=== PATIENT | female | born 1935 | race Caucasian/White ===

== ENCOUNTER 2021-04-20 07:09 | Day surgery (SDC) | payer OTHER ==
[2021-04-19 15:21] LABS: Absolute Lymphocytes (CBC) 1.9 K/uL (0.7-4.9); Basophils % 0.9 % (0-1.3); Hematocrit 38.6 % (36.0-45.0); Lymphocytes % 22.3 % (15.3-44.8); MPV 8.7 fL (7.6-11.3); RBC Red Blood Cell Count 4.26 M/uL (3.86-4.86)
--- NOTE | 2021-04-19 15:33 | RAD REPORT ---
EXAM DESCRIPTION: RAD - Chest Pa And Lat (2 Views) - 04/19/2021 3:13 pm CLINICAL HISTORY: Pre Op COMPARISON: No comparisonsChest Single View dated 09/06/2016; CHEST SINGLE VIEW dated 08/29/2012; CHEST PA AND LAT 2 VIEW dated 09/20/2011; CHEST PA AND LAT 2 VIEW dated 11/10/2008 FINDINGS: Lines: None. Lungs: No evidence of edema or pneumonia. Pleural: No significant pleural effusions or pneumothorax. Cardiac: The heart size is within normal limits. Bones: No acute fractures. Other: IMPRESSION: No acute cardiopulmonary disease.
[2021-04-19 15:40] LABS: Potassium 3.9 mmol/L (3.5-5.1)
[2021-04-20] MEDS ORDERED: Ringers Lactate 1,000 ML IV ONE (07:50)
[2021-04-20] MEDS ORDERED: CEFAZOLIN/SWI 1gm 1 GM/10 ML SYR ONE (07:50)
[2021-04-20] MEDS ORDERED: BUPIVACAINE 0.5% PF 10 ML VIAL ONE (08:18)
[2021-04-20] MEDS ORDERED: LIDOCAINE 1% MPF 5 ML VIAL ONE (08:19)
[2021-04-20] MEDS ORDERED: propofoL 200 MG/20 ML VIAL IV ONE (08:19)
[2021-04-20] MEDS ORDERED: FENTANYL CITR 100 MCG/2 ML ONE (08:19)
[2021-04-20] MEDS ORDERED: KETOROLAC 30 MG/ML INJ ONE (08:54)
--- NOTE | 2021-04-20 09:53 | OP ---
Date of Procedure: 04/20/2021 Surgeon: Sekou Healy MD Felt Hat Inspector And Packer: BRIDGETT Yepez. Preoperative Diagnosis: Left wrist mass rule out skin cancer. 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 Estimated Blood Loss: Minimal. Specimen: Left breast mass. Findings: Squamous cell carcinoma, well differentiated, margins free. Anesthesia: MAC. Complications: None. Disposition: The patient tolerated the procedure in stable condition and taken to Recovery in good g eneral condition. Procedure In Detail: The patient was brought to the OR and placed in supine position. MAC anesthesi a was begun. The patient was prepped and draped in the usual sterile fashion. Marcaine 0.5% was inf iltrated locally. A 15-blade was used to make a 5 x 2.5 cm incision. Subcutaneous tissue divided. The wrist mass was excised and then frozen section revealed it to be a well-differentiated squamous c ell carcinoma with margins being free. Wound irrigated. Bleeding controlled with cautery. Flaps cr eated and 2-0 and 3-0 chromic used to approximate subcutaneous tissue and 4-0 nylon used to close the skin. Sterile dressing applied. The patient was awakened and taken to Recovery in good general con dition. Discharge Note: The patient will go to Day Surgery and home when stable. Disposition: Home. Condition: Stable. Discharge Instructions: Resume home medications and diet. Activity as tolerated. No heavy lifting. Keep dressing clean and dry. Do not change dressing. We will change in the office. Tylenol No.3 one tablet p.o. q.4 p.r.n. pain and follow up in my office in 10 days. Call for appointment. JESSICA/ZAID Voice ID: [id number] Report ID: [id number]
[2021-04-20 10:39] VITALS: BP 171/72; TEMP 98.4; O2SAT 99
== END 2021-04-20 10:00 | disposition home or self-care (01) ==
LOC: OR 07:09
PROVIDERS: ATTEND Surgery
PROC: 0JBK0ZZ Excision of Left Hand Subcutaneous Tissue and Fascia, Open Approach (ICD-10-PCS; principal; 2021-04-20 08:15)
DX: C44.629 Squamous cell carcinoma of skin of left upper limb, including shoulder (principal); Z20.822 Contact with and (suspected) exposure to COVID-19
CPT/HCPCS: 85025; 80048; 36415; 88331; 88332; 88305; 71046; 11606; U0003; J2704; J3010; J0690; J7120

== ENCOUNTER 2021-09-04 16:25 | Observation (INO) | payer OTHER ==
[2021-09-04 16:57] LABS: Hematocrit 41.6 % (36.0-45.0); Lymphocytes % 33.3 % (15.3-44.8); MPV 8.2 fL (7.6-11.3); RBC Red Blood Cell Count 4.57 M/uL (3.86-4.86)
[2021-09-04 17:00] LABS: Protime INR 0.99
[2021-09-04] MEDS ORDERED: ONDANSETRON 4 MG/2 ML VIAL ONE (17:00)
[2021-09-04] MEDS ORDERED: NA CHLORIDE 0.9% 500 ML ONE (17:00)
[2021-09-04] MEDS ORDERED: FENTANYL CITR 100 MCG/2 ML ONE (17:00)
[2021-09-04 18:14] LABS: Albumin 3.6 g/dL (3.4-5.0); Bilirubin Direct 0.1 mg/dL (0-0.2); Bilirubin Total 0.4 mg/dL (0.2-1.0); Potassium 3.5 mmol/L (3.5-5.1); Protein, Total 7.3 g/dL (6.4-8.2); T3 Free 2.99 pg/mL (2.18-3.98); Troponin High Sensitivity 22.7 pg/mL (<58.9)
[2021-09-04 18:16] LABS: Thyroid Stimulating Hormone 4.49 uIU/mL (0.360-3.740)
--- NOTE | 2021-09-04 18:34 | RAD REPORT ---
EXAM DESCRIPTION: Nehemiah Single View09/04/2021 6:19 pm CLINICAL HISTORY: Chest pain COMPARISON: 2020 FINDINGS: The lungs appear clear of acute infiltrate. The heart is normal size IMPRESSION: No acute abnormalities displayed
--- NOTE | 2021-09-04 18:47 | ER ---
Nurse's Notes [facility] Name: Judi Harper Age: 85 yrs Sex: Female : 1935 Arrival Date: 09/04/2021 Time: 16:31 Bed 2 Private MD: Diagnosis: Chest pain, unspecified;Palpitations Presentation: 09/04 16:32 Chief complaint: EMS states: Pt called EMS for chest pain and high heart rate, hx of ph a-fib, on scene HR was 190s, SVT, attempted vagal maneuver, gave pt a 200 NS bolus, pt converted to regular rhythm, pt also reports taking an extra dose of her metoprolol when episode began. Coronavirus screen: At this time, the client does not indicate any symptoms associated with coronavirus-19. Ebola Screen: No symptoms or risks identified at this time. Initial Sepsis Screen: Does the patient meet any 2 criteria? Mean Arterial Pressure (MAP) < 65. HR > 90 bpm. Does the patient have a suspected source of infection? No. Patient's initial sepsis screen is negative. Risk Assessment: Do you want to hurt yourself or someone else? Patient reports no desire to harm self or others. Onset of symptoms was September 04, 2021. 16:32 Method Of Arrival: EMS: [facility] 16:32 Acuity: PIA 2 ph Triage Assessment: 16:30 General: Appears in no apparent distress. Behavior is calm. Pain: Denies pain. jg9 Cardiovascular: Rhythm is SVT. Historical: - Allergies: 16:36 PENICILLINS; ph - PMHx: 16:36 Atrial Fib; Hypertension; spinal stenosis; ph - Immunization history:: Client reports receiving the 2nd dose of the Covid vaccine, Pneumococcal vaccine is up to date, Flu vaccine is up to date. - Social history:: Smoking status: Patient denies any tobacco usage or history of. Screenin:30 Nutritional screening: No deficits noted. Tuberculosis screening: No symptoms or risk jg9 factors identified. Fall Risk None identified. 16:35 Abuse screen: Denies threats or abuse. Denies injuries from another. ph Assessment: 16:25 Pain: Complains of pain in chest Pain began suddenly. jg9 16:38 Reassessment: Patient appears in no apparent distress at this time. PT HR has ph increased, 180 bpm, SVT. 18:30 Pain: Denies pain. jg9 19:15 General: Appears in no apparent distress. comfortable, Behavior is calm, cooperative. al4 Pain: Denies pain. Neuro: Level of Consciousness is awake, alert, Oriented to person, place, time, situation. Cardiovascular: Capillary refill < 3 seconds Patient's skin is warm and dry. Respiratory: Airway is patent Respiratory effort is even, unlabored, Respiratory pattern is regular, symmetrical. GI: No signs and/or symptoms were reported involving the gastrointestinal system. : No signs and/or symptoms were reported regarding the genitourinary system. EENT: No signs and/or symptoms were reported regarding the EENT system. Derm: No signs and/or symptoms reported regarding the dermatologic system. Musculoskeletal: No signs and/or symptoms reported regarding the musculoskeletal system. 20:15 Reassessment: Patient and/or family updated on plan of care and expected duration. Pain al4 level reassessed. 21:15 Reassessment: Patient and/or family updated on plan of care and expected duration. Pain al4 level reassessed. Patient denies pain at this time. 21:30 Reassessment: Son at bedside. al4 21:52 Reassessment: report attempted. call back number given. will try again in 15 minutes if al4 phone call not returned. 22:06 General: Juan JUDD put hospital orders in. tw5 Vital Signs: 16:30 BP 112 / 81; Pulse 180; Resp 20; Pulse Ox 98% on R/A; jg9 16:32 BP 81 / 51; Pulse 180; Resp 18; Temp 97.5; Pulse Ox 100% on R/A; Weight 70.31 kg; ph Height 5 ft. 4 in. (162.56 cm); 17:00 BP 135 / 95; Pulse 87; Resp 19; Pulse Ox 99% on R/A; jg9 17:30 BP 150 / 99; Pulse 85; Resp 15 S; Pulse Ox 100% ; jg9 18:00 BP 129 / 89; Pulse 78; Resp 13 S; Pulse Ox 99% on R/A; jg9 18:30 BP 138 / 80; Pulse 76; Resp 17 S; Pulse Ox 100% ; jg9 19:00 BP 128 / 79; Pulse 75; Resp 14; Pulse Ox 97% ; Pain 0/10; al4 20:00 BP 153 / 88; Pulse 71; Resp 15; Pulse Ox 100% ; Pain 0/10; al4 21:00 BP 156 / 95; Pulse 76; Resp 16; Pulse Ox 100% ; al4 21:30 BP 153 / 83; Pulse 80; Resp 14 S; Pulse Ox 100% on R/A; al4 16:32 Body Mass Index 26.61 (70.31 kg, 162.56 cm) ph ED Course: 16:25 Patient has correct armband on for positive identification. Bed in low position. Call jg9 light in reach. Side rails up X 1. desk monitor on. 16:30 Maintain EMS IV. Dressing intact. Good blood return noted. Site clean \T\ dry. Gauge \T\ jg 9 site: 20 right fa. 16:30 Patient maintains SpO2 saturation greater than 95% on room air. jg9 16:31 Patient arrived in ED. ph 16:35 Triage completed. ph 16:35 Arm band placed on Patient placed in an exam room, on a stretcher, on security monitor, ph on pulse oximetry. 16:37 Ja Gilbert MD is Attending Physician. kdr 16:39 Juan Albarado PA is PHCP. cp 16:41 Germaine Winn, NEO is Primary Nurse. ph 17:45 bedside commode. jg9 18:20 XRAY Chest (1 view) In Process Unspecified. EDMS 18:36 No apparent distress. Resting quietly. jg9 18:45 Tyrell Valles MD is Hospitalizing Provider. cp 19:11 Primary Nurse role handed off by Germaine Winn, RN cs9 21:46 No provider procedures requiring assistance completed. Patient admitted, IV remains in al4 place. Administered Medications: 17:40 Drug: Zofran (Ondansetron) 4 mg {Note: RASS-0.} Route: IVP; Site: right antecubital; jg9 19:05 Follow up: Response: No adverse reaction ph 17:42 Drug: NS 0.9% 500 ml Route: IV; Rate: 250 ml/hr; Site: right antecubital; jg9 17:42 Drug: fentaNYL (PF) 25 mcg {Note: RASS-0.} Route: IVP; Site: right antecubital; jg9 19:05 Follow up: Response: No adverse reaction ph Outcome: 18:46 Decision to Hospitalize by Provider. cp 21:46 Admitted to Med/surg room 212, Report called to second floor, no answer. will try al4 again in 15 minutes 21:46 Condition: stable 21:46 Instructed on the need for admit. 22:35 Patient left the ED. al4 Signatures: Dispatcher [employer] EDMS Ja Gilbert MD MD [facility] Germaine Winn RN RN ph Juan Albarado PA PA Shameka Matute 5 Arianna Mabry 9 Anival Elliott al4 Sherry Valdes RN RN jg9 Corrections: (The following items were deleted from the chart) 21:43 21:15 Reassessment: Patient and/or family updated on plan of care and expected al4 duration. Pain level reassessed. al4
--- NOTE | 2021-09-04 18:47 | EDPHYS ---
Physician Documentation [facility] Name: Judi Harper Age: 85 yrs Sex: Female : 1935 Arrival Date: 09/04/2021 Time: 16:31 Bed 2 Private MD: ED Physician Ja Gilbert HPI: 09/04 16:40 This 85 yrs old Female presents to ER via EMS with complaints of Chest Pain. cp 16:40 The patient presents with a history of heart racing. cp 16:40 The patient or guardian reports chest pain that is located primarily in the substernal cp area. Onset: today. Duration: The patient or guardian reports a single episode, that is still ongoing, and unchanged. The chest pain is described as a pressure. 16:40 Patient reports taking 50 mg metoprolol prior to EMS arrival. cp Historical: - Allergies: 16:36 PENICILLINS; ph - PMHx: 16:36 Atrial Fib; Hypertension; spinal stenosis; ph - Immunization history:: Client reports receiving the 2nd dose of the Covid vaccine, Pneumococcal vaccine is up to date, Flu vaccine is up to date. - Social history:: Smoking status: Patient denies any tobacco usage or history of. ROS: 16:43 Cardiovascular: Positive for chest pain, palpitations. cp 16:43 Respiratory: Positive for shortness of breath, at rest. 16:45 Eyes: Negative for injury, pain, redness, and discharge. cp 16:45 Constitutional: Negative for body aches, chills, fever, poor PO intake. 16:45 ENT: Negative for ear pain, sore throat, difficulty swallowing, difficulty handling secretions. 16:45 Abdomen/GI: Negative for abdominal pain, vomiting, diarrhea, constipation. 16:45 Back: Negative for radiated pain. 16:45 Neuro: Negative for altered mental status, headache, syncope, weakness. cp 16:45 All other systems are negative. Exam: 16:42 ECG was reviewed by the Attending Physician. cp 16:50 Constitutional: The patient appears in no acute distress, alert, awake, cp non-diaphoretic, non-toxic, well developed, well nourished. 16:50 Head/Face: Normocephalic, atraumatic. cp 16:50 Eyes: Periorbital structures: appear normal, Conjunctiva: normal, no exudate, no injection, Sclera: no appreciated abnormality, Lids and lashes: appear normal, bilaterally. 16:50 ENT: External ear(s): are unremarkable, Nose: is normal, Mouth: Lips: moist, Oral mucosa: moist, Posterior pharynx: Airway: no evidence of obstruction, patent, erythema, is not appreciated, exudate, is not appreciated. 16:50 Neck: ROM/movement: is normal, is supple, without pain, no range of motions limitations. 16:50 Chest/axilla: Inspection: normal. 16:50 Cardiovascular: Rate: tachycardic, Rhythm: regular, Edema: ankle edema, that is very mild, JVD: is not appreciated. 16:50 Respiratory: the patient does not display signs of respiratory distress, Respirations: normal, no use of accessory muscles, no retractions, labored breathing, is not present, Breath sounds: are clear throughout, no decreased breath sounds, no stridor, no wheezing. 16:50 Abdomen/GI: Inspection: abdomen appears normal, Palpation: abdomen is soft and non-tender, in all quadrants. 16:50 Back: pain, is absent, ROM is normal. 16:50 Neuro: Orientation: to person, place \\T\\ time. Mentation: is normal, Motor: moves all fours, strength is normal, Sensation: is normal. 17:42 ECG was reviewed by the Attending Physician. cp Vital Signs: 16:30 BP 112 / 81; Pulse 180; Resp 20; Pulse Ox 98% on R/A; jg9 16:32 BP 81 / 51; Pulse 180; Resp 18; Temp 97.5; Pulse Ox 100% on R/A; Weight 70.31 kg; ph Height 5 ft. 4 in. (162.56 cm); 17:00 BP 135 / 95; Pulse 87; Resp 19; Pulse Ox 99% on R/A; jg9 17:30 BP 150 / 99; Pulse 85; Resp 15 S; Pulse Ox 100% ; jg9 18:00 BP 129 / 89; Pulse 78; Resp 13 S; Pulse Ox 99% on R/A; jg9 18:30 BP 138 / 80; Pulse 76; Resp 17 S; Pulse Ox 100% ; jg9 19:00 BP 128 / 79; Pulse 75; Resp 14; Pulse Ox 97% ; Pain 0/10; al4 20:00 BP 153 / 88; Pulse 71; Resp 15; Pulse Ox 100% ; Pain 0/10; al4 21:00 BP 156 / 95; Pulse 76; Resp 16; Pulse Ox 100% ; al4 21:30 BP 153 / 83; Pulse 80; Resp 14 S; Pulse Ox 100% on R/A; al4 16:32 Body Mass Index 26.61 (70.31 kg, 162.56 cm) ph MDM: 16:41 Patient medically screened. 18:45 Data reviewed: vital signs, nurses notes, lab test result(s), EKG, radiologic studies, cp plain films. 18:45 The patient was not given aspirin in the Emergency Department. Test interpretation: by ED physician or midlevel provider: ECG, plain radiologic studies. 09/04 16:41 Order name: Basic Metabolic Panel 09/04 18:23 Interpretation: Normal except: GLUC 115; BUN 24; GFR 55. 09/04 16:41 Order name: CBC with Diff; Complete Time: 18:08 cp 09/04 18:09 Interpretation: Reviewed. 09/04 16:41 Order name: LFT's 09/04 18:45 Interpretation: Normal except: GLOB 3.7; A/G 1.0. cp 09/04 16:41 Order name: Magnesium cp 09/04 16:41 Order name: NT PRO-BNP cp 09/04 16:41 Order name: PT-INR; Complete Time: 18:08 cp 09/04 18:09 Interpretation: Reviewed. 09/04 16:41 Order name: Troponin HS cp 09/04 16:41 Order name: TSH cp 09/04 18:23 Interpretation: Abnormal: TSH 4.490. cp 09/04 16:41 Order name: T3 Free cp 09/04 16:44 Order name: COVID-19 SARS RT PCR (Document "Date of Onset" if Symptomatic) cp 09/04 18:16 Order name: T4 Free EDMS 09/04 16:41 Order name: XRAY Chest (1 view); Complete Time: 18:44 cp 09/04 16:41 Order name: EKG; Complete Time: 16:42 cp 09/04 16:41 Order name: Cardiac monitoring; Complete Time: 16:42 cp 09/04 19:38 Order name: EKG Electrocardiogram EDAL 09/04 19:38 Order name: EKG Electrocardiogram EDAL 09/04 16:41 Order name: EKG - Nurse/Tech; Complete Time: 17:32 cp 09/04 16:41 Order name: IV Saline Lock; Complete Time: 16:42 cp 09/04 16:41 Order name: Labs collected and sent; Complete Time: 17:32 cp 09/04 16:41 Order name: O2 Per Protocol; Complete Time: 16:42 cp 09/04 16:41 Order name: O2 Sat Monitoring; Complete Time: 16:42 cp 09/04 17:03 Order name: Labs - recollect needed: recollect blue and green top; Complete Time: 17:44 bd EC:42 Rate is 102 beats/min. Rhythm is regular. LA interval is normal. QRS interval is cp normal. QT interval is normal. T waves are Inverted in lead aVR. Interpreted by me. Reviewed by me. 17:42 Rate is 79 beats/min. Rhythm is regular. LA interval is normal. QRS interval is normal. cp QT interval is normal. T waves are Flattened in lead aVL. Interpreted by me. Reviewed by me. Administered Medications: 17:40 Drug: Zofran (Ondansetron) 4 mg {Note: RASS-0.} Route: IVP; Site: right antecubital; jg9 19:05 Follow up: Response: No adverse reaction ph 17:42 Drug: NS 0.9% 500 ml Route: IV; Rate: 250 ml/hr; Site: right antecubital; jg9 17:42 Drug: fentaNYL (PF) 25 mcg {Note: RASS-0.} Route: IVP; Site: right antecubital; jg9 19:05 Follow up: Response: No adverse reaction ph Disposition: 09/05 07:58 Co-signature as Attending Physician, Ja Gilbert MD I agree with the assessment and kdr plan of care. Disposition Summary: 09/04/21 18:46 Hospitalization Ordered Hospitalization Status: Observation cp Provider: Tyrell Valles cp Condition: Stable cp Problem: new cp Symptoms: have improved cp Bed/Room Type: Standard cp Location: Telemetry/MedSurg (observation)(09/04/21 21:23) cg Room Assignment: [facility](09/04/21 21:23) cg Diagnosis - Chest pain, unspecified cp - Palpitations cp Forms: - Medication Reconciliation Form cp - SBAR form cp Signatures: Dispatcher [employer] EDMS Myranda Christian Ja Gilbert MD MD [facility] Germaine Winn RN RN ph Juan Albarado PA PA Siena Wallis, NEO RN cg Sherry Valdes RN RN jg9 Corrections: (The following items were deleted from the chart) 09/04 19:31 18:46 Telemetry/MedSurg (Inpatient) cp cg 19:31 18:46 cp cg 19:44 19:38 Regular ordered. EDMS EDMS 19:44 19:38 Basic Metabolic Panel ordered. EDMS EDMS 19:44 19:38 Basic Metabolic Panel ordered. EDMS EDMS 19:44 19:38 EKG Electrocardiogram ordered. EDMS EDMS 19:44 19:38 EKG Electrocardiogram ordered. EDMS EDMS 19:45 19:38 Troponin High Sensitivity ordered. EDMS EDMS 19:45 19:38 Troponin High Sensitivity ordered. EDMS EDMS 19:45 19:38 Troponin High Sensitivity ordered. EDMS EDMS 19:45 19:38 Troponin High Sensitivity ordered. EDMS EDMS 19:45 19:39 CBC with Automated Diff ordered. EDMS EDMS 19:45 19:39 CBC with Automated Diff ordered. EDMS EDMS 21:23 19:31 [facility] ER HOLD cg cg 21:23 19:31 ERHOLD- cg cg 09/05 02:58 02:57 The patient presents with a history of heart racing, cp cp
[2021-09-04] MEDS ORDERED: ONDANSETRON 4 MG/2 ML VIAL IV PRN ×2 (19:34→23:11)
[2021-09-04] MEDS ORDERED: FENTANYL CITR 100 MCG/2 ML IV PRN (19:36)
[2021-09-04 22:23] LABS: Magnesium 1.8
[2021-09-04] MEDS ORDERED: ACETAMINOPHEN 325 MG TABLET PO PRN (23:11)
[2021-09-04] MEDS: FENTANYL CITR 100 MCG/2 ML IV PRN (23:43)
[2021-09-05 00:13] VITALS: BMI 26.6
[2021-09-05 04:31] VITALS: TEMP 97.7
[2021-09-05 05:44] LABS: Absolute Lymphocytes (CBC) 2.6 K/uL (0.7-4.9); Hematocrit 39.9 % (36.0-45.0); Lymphocytes % 28.3 % (15.3-44.8); MPV 8.2 fL (7.6-11.3); RBC Red Blood Cell Count 4.39 M/uL (3.86-4.86)
[2021-09-05 06:00] LABS: Potassium 3.9 mmol/L (3.5-5.1)
[2021-09-05] MEDS: FENTANYL CITR 100 MCG/2 ML IV PRN (06:36)
--- NOTE | 2021-09-05 08:59 | EKG ---
Test Date: 2021-09-04 Test Time: 17:34:28 Insect Control Aide: MEASUREMENT RESULTS: Intervals: Rate: 82 OR: 160 QRSD: 74 QT: 328 QTc: 383 [place]: P: 90 OR: 160 QRS: 52 T: 65 INTERPRETIVE STATEMENTS: Normal sinus rhythm Normal ECG Compared to ECG 09/04/2021 16:39:42 Sinus tachycardia no longer present Left ventricular hypertrophy no longer present Early repolarization no longer present Electronically Signed On 09-05-21 08:57:27 OILSEED MEAT PRESSER by Jose Garcia
--- NOTE | 2021-09-05 08:59 | EKG ---
Test Date: 2021-09-04 Test Time: 16:39:42 Onboarding Specialist: MEASUREMENT RESULTS: Intervals: Rate: 102 NH: 164 QRSD: 82 QT: 298 QTc: 388 [place]: P: 56 NH: 164 QRS: 63 T: 61 INTERPRETIVE STATEMENTS: Sinus tachycardia Left ventricular hypertrophy with repolarization abnormality Abnormal ECG Compared to ECG 09/06/2016 16:08:22 Left ventricular hypertrophy now present Early repolarization now present Sinus rhythm no longer present Atrial premature complex(es) no longer present Electronically Signed On 09-05-21 08:57:28 SURVEYOR ROD HELPER by Jose Garcia
--- NOTE | 2021-09-05 08:59 | EKG ---
Test Date: 2021-09-04 Test Time: 17:35:00 Timber Management Professor: MEASUREMENT RESULTS: Intervals: Rate: 79 MS: 158 QRSD: 80 QT: 332 QTc: 380 [place]: P: 58 MS: 158 QRS: 48 T: 61 INTERPRETIVE STATEMENTS: Normal sinus rhythm Normal ECG Compared to ECG 09/04/2021 17:34:28 No significant changes Electronically Signed On 09-05-21 08:57:26 MAGAZINE EDITOR by Jose Garcia
[2021-09-05] MEDS ORDERED: ASPIRIN EC 81 MG TAB PO SCH (09:00)
[2021-09-05] MEDS ORDERED: METOPROLOL TAR 50 MG TAB PO SCH (09:00)
[2021-09-05] MEDS: FAMOTIDINE 20 MG/2 ML VIAL IV SCH ×2 (09:00→10:09)
[2021-09-05 09:12] VITALS: O2SAT 99
[2021-09-05 10:09] VITALS: BP 132/70
--- NOTE | 2021-09-05 11:04 | CON ---
Date of Consultation: 09/05/2021 Reason For Consultation: Atrial fibrillation and chest pain. History Of Present Illness: Ms. Harper is 85. She has had paroxysmal atrial fibrillation for many y ears. She has hypertension, spinal stenosis. Came in with rapid atrial fibrillation. She is back i n sinus rhythm right now after IV metoprolol. She is asymptomatic now. When she had her atrial fibr illation, she developed some chest pain and shortness of breath and diaphoresis, but no nausea, vomit ing. No syncope. She denied any fever or chills. She has already ruled out for an OK. Past Medical History: As stated above. Allergies: SHE IS ALLERGIC TO PENICILLIN. Medications: At home include metoprolol 50 b.i.d., Xarelto, and hydrochlorothiazide. Social History: Negative. Review of Systems: Positive for severe back pain. Family History: Noncontributory. Physical Examination: Vital Signs: Stable, afebrile, sinus rhythm, rate of 80. HEENT: Negative. Neck: Supple with no bruit. Chest: Clear. Cardiac: Revealed regular rhythm and rate. No murmurs, gallops, or rubs. Abdomen: Benign. Extremities: Revealed no clubbing, cyanosis, or edema. Diagnostic Data: All normal. Last echocardiogram in March 2021 in the office was normal. Impression And Plan: Recurrent atrial fibrillation, paroxysmal. I will increase her metoprolol to 5 0 three times a day, consider switching to sotalol or amiodarone, consider ablation. If that failed, then I will give the beta-blockers 1 more chance at that dose if she tolerates it. Also continue Xa relto. Since she had some chest pain with this, I recommend outpatient Lexiscan in the near future a nd I will see her in the office. Her blood pressure is well controlled. Her spinal stenosis is an i ssue and she has seen multiple pain doctors in the past. I will defer that to Dr. Valles. From my standpoint, she can go home today, increase metoprolol to 50 three times a day. I will arrange for a n outpatient Lexiscan and I will see her soon. EMMETT/ZAID Voice ID: [id number] Report ID: [id number]
[2021-09-05] MEDS ORDERED: RIVAROXABAN 20 MG TABLET PO SCH (17:00)
[2021-09-05] MEDS ORDERED: RIVAROXABAN 10 MG TABLET PO SCH (17:00)
--- NOTE | 2021-09-06 09:41 | ECHO ---
HEIGHT: 5 ft 4 in WEIGHT: 155 lb 0 oz DATE OF STUDY: 09/05/[address]: Juan Morgan MD 2-DIMENSIONAL: YES M.MODE: YES DOPPLER: YES COLOR FLOW: YES TDS: NO PORTABLE: NO DEFINITY: NO BUBBLE STUDY: NO DIAGNOSIS: CHEST PAIN, ATRIAL FIBRILLATION CARDIAC HISTORY: CATHERIZATION: NO SURGERY: NO PROSTHETIC VALVE: NO PACEMAKER: NO MEASUREMENTS (cm) DIASTOLIC (NORMALS) SYSTOLIC (NORMALS) IVSd 1.1 (0.6-1.2) LA Diam 2.9 (1.9-4.0) LVEF 67% LVIDd 3.9 (3.5-5.7) LVIDs 2.4 (2.0-3.5) %FS 37% LVPWd 1.1 (0.6-1.2) Ao Diam 3.0 (2.0-3.7) 2 DIMENSIONAL ASSESSMENT: RIGHT ATRIUM: NORMAL LEFT ATRIUM: NORMAL RIGHT VENTRICLE: NORMAL LEFT VENTRICLE: NORMAL TRICUSPID VALVE: NORMAL MITRAL VALVE: NORMAL PULMONIC VALVE: NORMAL AORTIC VALVE: NORMAL PERICARDIAL EFFUSION: NONE AORTIC ROOT: NORMAL LEFT VENTRICULAR WALL MOTION: NORMAL DOPPLER/COLOR FLOW: NORMAL COMMENTS: NORMAL 2D ECHOCARDIOGRAM WITH DOPPLER. NO WALL MOTION ABNORMALITY. NO EFFUSION. TECHNOLOGIST: Alexa PEDERSEN
== END 2021-09-05 14:18 | disposition home or self-care (01) ==
LOC: ER 16:25 → ERHOLD 19:33 → 2ND 21:28
PROVIDERS: ADMIT Family Medicine; ATTEND Family Medicine
DX: I48.0 Paroxysmal atrial fibrillation (principal); R07.9 Chest pain, unspecified; I10 Essential (primary) hypertension; M48.00 Spinal stenosis, site unspecified; Z79.01 Long term (current) use of anticoagulants; Z88.0 Allergy status to penicillin; Z20.822 Contact with and (suspected) exposure to COVID-19
CPT/HCPCS: 93005 ×3; 93306; 85025 ×2; 80048 ×2; 36415; 83735; 85610; 80076; 84443; 84484; 84481; 84439; 83880; 71045; 96375; 96374; 99285; U0003; J3010 ×3; J7040; J2405; G0378 ×2

== ENCOUNTER 2023-11-22 13:21 | Observation (INO) | payer OTHER ==
[2023-11-22] MEDS ORDERED: NITROGLYCERIN 1 GM PKT TD ONE (13:47)
[2023-11-22 13:50] LABS: Absolute Basophils 0.1 K/uL (0-0.5); Absolute Eosinophils 0.1 K/uL (0-0.5); Absolute Lymphocytes (CBC) 1.6 K/uL (0.7-4.9); Absolute Monocytes 0.5 K/uL (0.1-1.3); Absolute Neutrophil 6.9 K/uL (1.8-8.0); Basophils % 0.6 % (0-1.3); Eosinophils % 1.1 % (0-4.4); Hemoglobin 12.1 g/dL (12.0-15.0); Lymphocytes % 17.7 % (15.3-44.8); MCH 28.6 pg (27.0-35.0); MCHC 32.8 g/dL (32.0-36.0); MCV 87.4 fL (80-100); Monocytes % 5.8 % (3.3-12.3); Neutrophils % 74.8 % (41.7-73.7); Platelets 213 thou/uL (152-406); RBC Red Blood Cell Count 4.23 M/uL (3.86-4.86); Red Cell Distribution Width 14.1 % (12.1-15.2)
[2023-11-22 13:54] LABS: PT Prothrombin Time 14.6 SECONDS (9.5-12.5); PTT, Activated Partial Thromb 34.3 SECONDS (24.3-36.9); Protime INR 1.34
[2023-11-22 14:04] LABS: Albumin 3.3 g/dL (3.4-5.0); Albumin/Globulin Ratio 0.9 (1.1-1.8); Anion Gap 7.9 mEq/L (5.0-15.0); Bilirubin Direct 0.2 mg/dL (0-0.2); Bilirubin Indirect, Calculated 0.5 mg/dL (0.2-0.8); Bilirubin Total 0.7 mg/dL (0.2-1.0); Globulin 3.8 g/dL (2.3-3.5); Potassium 3.9 mEq/L (3.5-5.1); Protein, Total 7.1 g/dL (6.4-8.2); Troponin High Sensitivity 9.8 pg/mL (<58.9)
--- NOTE | 2023-11-22 14:15 | RAD REPORT ---
EXAM DESCRIPTION: Nehemiah Single View11/22/2023 1:51 pm CLINICAL HISTORY: Shortness breath COMPARISON: 2020 FINDINGS: The patient is somewhat rotated. Opacity lies adjacent to right aspect the heart. Otherwise, the lungs appear clear of acute infiltrate. The heart is normal size IMPRESSION: Opacity lies adjacent to the right aspect of the heart. This may represent tortuous aort a. A mass is probably less likely. PA and lateral chest series is recommended
[2023-11-22] MEDS ORDERED: ALBUTEROL 2.5 MG/3 ML NEB SOL ONE ×3 (14:20→20:26)
[2023-11-22] MEDS ORDERED: IPRATROPIUM BROM 0.5MG/2.5ML ONE ×3 (14:20→20:26)
--- NOTE | 2023-11-22 15:47 | RAD REPORT ---
EXAM DESCRIPTION: CT - Chest For Pe Angio - 11/22/2023 3:15 pm CLINICAL HISTORY: Shortness of breath COMPARISON: November 22, 2023 chest x-ray TECHNIQUE: Dynamically enhanced axial 3 mm thick images of the chest were obtained during administra tion of 100 mL Isovue 370 IV contrast. Coronal and oblique reconstruction images were generated and r eviewed. Exam utilizes a protocol for optimal evaluation of pulmonary arterial tree. Maximum intensity projections 3D imaging was utilized All CT scans are performed using dose optimization technique as appropriate and may include automated exposure control or mA/KV adjustment according to patient size. FINDINGS: A pulmonary embolus is not seen. A thoracic aortic aneurysm is not noted. Tortuous aorta A pleural effusion is not seen. A pericardial effusion is not seen. A few areas of subsegmental atelectasis within the lower lobes. IMPRESSION: Negative for a pulmonary embolism.
--- NOTE | 2023-11-22 16:16 | ER ---
Nurse's Notes [facility] Name: Judi Harper Age: 88 yrs Sex: Female : 1935 Arrival Date: 11/22/2023 Time: 13:21 Bed 8 Private MD: Diagnosis: Dyspnea;Acute respiratory distress syndrome Presentation: 11/21 13:31 Chief complaint: EMS states: SOB, cough, and midsternal chest pain x 2 days. hb Coronavirus screen: Client presents with at least one sign or symptom that may indicate coronavirus-19. Provider contacted for isolation considerations. Ebola Screen: No symptoms or risks identified at this time. Initial Sepsis Screen: Does the patient meet any 2 criteria? RR > 20 per min. No. Patient's initial sepsis screen is negative. Does the patient have a suspected source of infection? No. Patient's initial sepsis screen is negative. Risk Assessment: Do you want to hurt yourself or someone else? Patient reports no desire to harm self or others. Onset of symptoms was November 21, 2023. Care prior to arrival: Medication(s) given: Albuterol Neb Atrovent Neb x 1, Normal saline infusion, 500 mL, SoluMedrol 125 mg IVP IV initiated. 20 GA, in the right antecubital area, Glucose check: 187 Med neb given. Transition of care: patient was not received from another setting of care. 13:31 Method Of Arrival: EMS: [facility] hb 13:31 Acuity: PIA 2 hb Triage Assessment: 13:34 General: Appears distressed, Behavior is cooperative, restless. Pain: Pain currently is hb 5 out of 10 on a pain scale. Neuro: Level of Consciousness is awake, alert, obeys commands, Oriented to person, place, time, situation. Cardiovascular: Patient's skin is warm and dry. Respiratory: Reports shortness of breath at rest on exertion Airway is patent Respiratory effort is labored, with nasal flaring, Respiratory pattern is tachypnea Onset: The symptoms/episode began/occurred yesterday, the patient has moderate shortness of breath. Historical: - Allergies: 13:34 PENICILLINS; hb - PMHx: 13:34 Atrial Fib; Hypertension; spinal stenosis; hb - Immunization history:: Adult Immunizations up to date. - Infectious Disease History:: Denies. - Social history:: Smoking status: Patient denies any tobacco usage or history of. Screenin:10 [facility] ED Fall Risk Assessment (Adult) History of falling in the last 3 months, nj1 including since admission No falls in past 3 months (0 pts) Confusion or Disorientation No (0 pts) Intoxicated or Sedated No (0 pts) Impaired Gait No (0 pts) Mobility Assist Device Used No (0 pt) Altered Elimination No (0 pt) Score/Fall Risk Level 0 - 2 = Low Risk Oriented to surroundings, Maintained a safe environment, Hourly rounding (assess needs \T\ fall precautionary measures) done. Abuse screen: Denies threats or abuse. Denies injuries from another. Nutritional screening: No deficits noted. Tuberculosis screening: No symptoms or risk factors identified. Assessment: 14:10 General: Appears in no apparent distress. uncomfortable. nj1 14:10 General: Behavior is calm, cooperative, appropriate for age. nj1 14:10 Pain: Complains of pain in chest Pain currently is 5 out of 10 on a pain scale. nj1 Aggravated by cough. Neuro: Level of Consciousness is awake, alert, obeys commands, Oriented to person, place, time, situation. Cardiovascular: Patient's skin is warm and dry. Rhythm is regular. Respiratory: Airway is patent Respiratory effort is even, unlabored, cough Breath sounds with wheezes in left upper lobe and left lower lobe. 16:25 Reassessment: Patient appears in no apparent distress at this time. Patient and/or nj1 family updated on plan of care and expected duration. Pain level reassessed. Patient is alert, oriented x 3, equal unlabored respirations, skin warm/dry/pink. Respiratory: Breath sounds with wheezes bilaterally. 19:00 Reassessment: Patient appears in no apparent distress at this time. Patient and/or rv family updated on plan of care and expected duration. Pain level reassessed. Patient is alert, oriented x 3, equal unlabored respirations, skin warm/dry/pink. Vital Signs: 13:31 BP 163 / 87; Pulse 83; Resp 36; Temp 97.9(TE); Pulse Ox 100% on R/A; Weight 74.84 kg; hb Height 5 ft. 5 in. ; Pain 5/10; 14:23 BP 150 / 95; Pulse 87; Resp 20; Pulse Ox 100% on Breathing treatment; nj1 14:51 BP 161 / 113; Pulse 73; Resp 18; Pulse Ox 95% on R/A; ld1 19:00 BP 136 / 79; Pulse 73; Resp 18; Temp 97.8; Pulse Ox 95% on 2 lpm NC; rv 20:53 BP 153 / 85; Pulse 89; Resp 17; Temp 98; Pulse Ox 94% on R/A; rv 13:31 Body Mass Index 27.46 (74.84 kg, 165.1 cm) hb 13:31 Pain Scale: Adult hb ED Course: 13:31 Patient arrived in ED. hb 13:33 Brandon Boyd MD is Attending Physician. bo1 13:34 Triage completed. hb 13:35 Pamela Hurtado, RN is Primary Nurse. nj1 13:36 Arm band placed on. hb 13:36 Client placed on continuous cardiac and pulse oximetry monitoring. NIBP monitoring hb applied. harness inspector on. Pulse ox on. NIBP on. 13:36 EKG done, by ED staff. hb 13:53 XRAY Chest (1 view) In Process Unspecified. EDMS 14:10 Patient has correct armband on for positive identification. Bed in low position. Call nj1 light in reach. Adult w/ patient. 14:10 Provided Education on: call light, fall precautions. nj1 15:17 CT Chest For PE Angio In Process Unspecified. EDMS 16:15 Geronimo Keita MD is Hospitalizing Provider. bo1 19:00 Report given to Jaquan LARSON and Clemente LARSON. nj1 20:52 No provider procedures requiring assistance completed. Patient admitted, IV remains in rv place. Administered Medications: 14:12 Drug: Nitroglycerin Transdermal Ointment 2 % 1 inches Transdermal once Route: nj1 Transdermal; Site: anterior chest wall; 14:23 Drug: DuoNeb Nebulize (2.5 mg - 0.5 mg) 3 ml Nebulizer once Route: Nebulizer; nj1 20:53 Follow up: Response: No adverse reaction rv 16:27 Drug: DuoNeb Nebulize (2.5 mg - 0.5 mg) 3 ml Nebulizer once Route: Nebulizer; nj1 20:52 Follow up: Response: No adverse reaction rv Medication: 20:52 VIS not applicable for this client. rv Outcome: 16:16 Decision to Hospitalize by Provider. bo1 20:52 Admitted to Tele accompanied by nurse, via stretcher, rv 20:52 Condition: good 20:52 Instructed on the need for admit, 20:56 Patient left the ED. rv Signatures: Dispatcher [employer] EDMS Tresa Crump, RN RN hb Carl Cruz RN RN rv Radha Price RN RN ld1 Pamela Hurtado RN RN nj1 Brandon Boyd MD MD bo1 Corrections: (The following items were deleted from the chart) 13:36 13:34 Respiratory: Reports shortness of breath at rest on exertion Airway is patent hb Respiratory effort is labored, with nasal flaring, Respiratory pattern is tachypnea Onset: The symptoms/episode began/occurred yesterday, the patient has severe shortness of breath hb 20:52 20:52 Patient did not have IV access during this emergency room visit. rv rv
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
[2023-11-22] MEDS ORDERED: ALBUTEROL 2.5 MG/3 ML NEB SOL NEB PRN (17:49)
[2023-11-22 18:25] LABS: Arterial Blood Carboxyhemoglob 1.2 % (0-1.5); Blood Gas Oxyhemoglobin 92.6 % (94-97); Blood Gas THB 12.9 g/dl (12-18); Blood O2 Saturation 95.1 % (92-98.5)
[2023-11-22] MEDS ORDERED: IPRATROPIUM BROM 0.5MG/2.5ML NEB SCH (19:00)
[2023-11-22] MEDS: IPRATROPIUM BROM 0.5MG/2.5ML NEB SCH (20:32)
[2023-11-22 20:34] VITALS: BMI 27.4
--- NOTE | 2023-11-22 20:57 | P.HP ---
Certification for Inpatient Patient admitted to: Observation Practitioner: I am a practitioner with admitting privileges, knowledge of patient current condition, hospital course, and medical plan of care. Services: Services provided to patient in accordance with Admission requirements found in Title 42 Section 412.3 of the Code of Federal Regulations Patient History Date of Service: 11/22/23 Reason for admission: COPD exacerbation History of Present Illness: 88 yo female with a PMH of HTN, Atrial fibrillation on xarelto and seasonal allergies who presented to the ED with complaints of shortness of breath that began the night prior to arrival. She reports cough that has been present since spinal decompression surgery in July 2023. Patient in mild/moderate respiratory distress upon arrival, given dose of steroid and duoneb in ED with improvement. CTA chest negative for pulmonary embolism. No leukocytosis. Afebrile. . Pt admitted for COPD exacerbation. Allergies Penicillins Allergy (Intermediate, Verified 09/04/21 23:15) Itching/Hives/Rash Home medications list reviewed: Yes Home Medications: Acetaminophen [Tylenol Arthritis] 2 tab PO BID 09/04/21 Alendronate Sodium 70 mg PO SEECOM 09/04/21 Cyclobenzaprine HCl [Flexeril] 5 mg PO BID 09/04/21 Metoprolol Tartrate 50 mg PO TID 09/04/21 Rivaroxaban [Xarelto] 20 mg PO DAILY 09/04/21 Tramadol HCl [Ultram] 50 mg PO BEDTIME 09/04/21 hydroCHLOROthiazide [Hydrochlorothiazide] 25 mg PO DAILY 09/04/21 - Past Medical/Surgical History Has patient received pneumonia vaccine in the past: Yes Diabetic: No -: A.FIB -: HTN -: SPINAL STENOSIS -: MANOJ KNEE REPLACEMENTS -: HYSTERECTOMY -: CATARACTS -: RECTAL SLING, BLADDER SLING -: Spinal Decompression 07/2023 -: PERINEAL SLING -: MASTECTOMY, BILATERAL -: APPENDECTOMY - Social History Smoking Status: Former smoker Alcohol use: No CD- Drugs: No Caffeine use: No Place of Residence: Home Review of Systems Respiratory: Cough, Shortness of Breath Physical Examination - Vital Signs Temperature: 97.8 F Blood Pressure: 136/79 Pulse: 73 Respirations: 18 Pulse Ox (%): 95 - Physical Exam General: In no apparent distress, Oriented x3 HEENT: Atraumatic, Normocephalic Respiratory: Expiratory wheezes, Other (on 4L nasal cannula) Cardiovascular: No edema, Normal pulses, Regular rate/rhythm Gastrointestinal: Normal bowel sounds, Soft and benign Integumentary: No rashes Neurological: Normal speech - Studies Laboratory Data (last 24 hrs) 11/22/23 11/22/23 11/22/23 13:37 13:37 13:37 WBC 9.20 Hgb 12.1 Hct 37.0 Plt Count 213 PT 14.6 H INR 1.34 APTT 34.3 Sodium 139 Potassium 3.9 BUN 23 H Creatinine 1.03 H Glucose 157 H Magnesium 2.0 Total Bilirubin 0.7 AST 19 ALT 24 Alkaline Phosphatase 71 Lipase 24 Assessment and Plan - Plan Problem List COPD Exacerbation Atrial Fibrillation Hypertension Spinal Stenosis s/p spinal decompression 07/2023 COPD Exacerbation - supplemental O2 per protocol - nebulizer treatments - prednisone PO - immunizations reported up to date by patient and her sons at bedside - ABG pending - consider pulmonology consult in AM Atrial fibrillation - continue home xarelto Hypertension - continue home antihypertensives - Heart healthy diet Code: full VTE: xarelto - Advance Directives Does patient have a Living Will: Yes Does patient have a Durable POA for Healthcare: Yes
[2023-11-22] MEDS: ALBUTEROL 2.5 MG/3 ML NEB SOL NEB SCH (21:00)
[2023-11-22] MEDS ORDERED: predniSONE 20 MG TAB PO SCH (21:00)
[2023-11-22] MEDS: ACETYLCYST 20% 4 ML VIAL IH SCH (21:40)
--- NOTE | 2023-11-22 21:43 | P.PN ---
Date of Service: 11/22/23 Patient seen while in the emergency room, more dyspneic as the persistent wheezing, DuoNeb switched to every 4 hours. Started on IV steroids, added Mucomyst nebulizer also in the initiated. Patient was started on antibiotics for empirical management of COPD exacerbation
[2023-11-22] MEDS: METHYLPREDNISOLONE 125 MG INJ IV SCH (21:59)
[2023-11-22] MEDS: CEFTRIAXONE 1,000 MG in NA CHLORIDE 0.9% 50 ML IVPB SCH (22:00)
[2023-11-22] MEDS: GUAIFENESIN 600 MG SA TAB PO ONE (22:29)
[2023-11-23] MEDS: FUROSEMIDE 40 MG/4 ML VIAL IV ONE (05:31)
[2023-11-23 07:06] LABS: Absolute Lymphocytes (CBC) 1.1 K/uL (0.7-4.9); Absolute Monocytes 0.3 K/uL (0.1-1.3); Absolute Neutrophil 10.7 K/uL (1.8-8.0); Basophils % 0.3 % (0-1.3); Hematocrit 37.3 % (36.0-45.0); Hemoglobin 12.1 g/dL (12.0-15.0); Lymphocytes % 9.5 % (15.3-44.8); MCH 28.3 pg (27.0-35.0); MCHC 32.6 g/dL (32.0-36.0); MCV 86.8 fL (80-100); Monocytes % 2.1 % (3.3-12.3); Neutrophils % 88.1 % (41.7-73.7); Platelets 216 thou/uL (152-406); RBC Red Blood Cell Count 4.29 M/uL (3.86-4.86); Red Cell Distribution Width 14.4 % (12.1-15.2)
[2023-11-23 07:32] LABS: Albumin 3.4 g/dL (3.4-5.0); Albumin/Globulin Ratio 0.8 (1.1-1.8); Anion Gap 13.3 mEq/L (5.0-15.0); Bilirubin Total 0.5 mg/dL (0.2-1.0); Globulin 4.4 g/dL (2.3-3.5); Protein, Total 7.8 g/dL (6.4-8.2)
[2023-11-23 07:33] LABS: Potassium 3.3 mEq/L (3.5-5.1)
[2023-11-23] MEDS: RIVAROXABAN 20 MG TABLET PO SCH (08:13)
[2023-11-23] MEDS: GUAIFENESIN 600 MG SA TAB PO SCH (08:13)
--- NOTE | 2023-11-23 08:49 | P.PN ---
Date of Service: 11/23/23 Subjective: No acute events overnight. Patient sitting up on side of bed eating breakfast. + Shortness of breath + Intermittent cough Physical Exam General: Alert, oriented x3. HEENT: Atraumatic, Normocephalic. Corrective lenses Respiratory: Expiratory wheezes, Other on 2 L nasal cannula. Tachypneic. Cardiovascular: No edema, Normal pulses, Regular rate/rhythm Gastrointestinal: Normal bowel sounds, Soft and benign Integumentary: No rashes Neurological: Normal speech Vitals Reviewed Labs Reviewed Assessment and Plan Problem List COPD Exacerbation Atrial Fibrillation Hypertension Spinal Stenosis s/p spinal decompression 07/2023 COPD Exacerbation -CTA chest negative for pulmonary embolism - immunizations reported up to date by patient and her sons at bedside - supplemental O2 per protocol - nebulizer treatments - prednisone PO - pulmonology consulted; appreciate recommendations -Sputum culture pending - CT soft tissue neck 11/22: No acute process is visualized Atrial fibrillation - continue home xarelto Hypertension - continue home antihypertensives - Heart healthy diet Code: full VTE: xarelto Dispo: 24-48 hours
[2023-11-23 09:05] LABS: Blood Morphology Comment NOT SEEN (NOT SEEN); Platelet Estimate ADEQ; White Blood Cell Scan OK (OK)
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
[2023-11-23 12:20] LABS: Sqamous Epithelial <5 /HPF (None Seen); Transitional Epithelial <5 /HPF (None Seen); Urine Bacteria None Seen /HPF (<20); Urine Bilirubin NEGATIVE (Negative); Urine Blood Negative (Negative); Urine Clarity Clear (Clear); Urine Color Colorless (Yellow); Urine Culture Reflex Order NOT NEEDED; Urine Glucose NEGATIVE (Negative); Urine Ketones NEGATIVE (Negative); Urine Microscopic Reflex YN ORDER UMIC; Urine Mucus Slight /HPF (None Seen); Urine Nitrite NEGATIVE (Negative); Urine Protein NEGATIVE (Negative); Urine RBC <5 /HPF (None Seen); Urine Urobilinogen Normal (Normal); Urine WBC <5 /HPF (<5); Urine pH 5.5 (5.0-7.0)
--- NOTE | 2023-11-23 12:53 | RAD REPORT ---
EXAM DESCRIPTION: CT - Soft Tissue Neck Wo Contr CLINICAL HISTORY: REsp distress post surgery Pain, swelling. COMPARISON: No comparisons TECHNIQUE All CT scans are performed using dose optimization technique as appropriate and may includ e automated exposure control or mA/KV adjustment according to patient size. FINDINGS: A limited noncontrast study was performed. No intrinsic neck mass is visualized. Moderate paranasal sinus opacification is present. Thyroid gland is normal in size. No bulky lymphadenopathy in the neck. Salivary glands are symmetric. Moderate midcervical degenerative changes. IMPRESSION: No acute process is visualized.
[2023-11-23] MEDS: IPRATROPIUM BROM 0.5MG/2.5ML NEB SCH (13:52)
[2023-11-23] MEDS: ALBUTEROL 2.5 MG/3 ML NEB SOL NEB SCH (13:52)
[2023-11-23] MEDS: METHYLPREDNISOLONE 125 MG INJ IV SCH (16:18)
--- NOTE | 2023-11-24 07:18 | P.PN ---
Date of Service: 11/24/23 Subjective: Improving In no apparent distress. Patient reports significant improvement in breathing/wheezing today compared to yester Physical Exam General: Alert, oriented x3. in no apparent distress. HEENT: Atraumatic, Normocephalic. Corrective lenses Respiratory: Slightly diminished. On 2L nasal cannula. nonlabored repirations. Cardiovascular: No edema, Normal pulses, Regular rate/rhythm Gastrointestinal: Normal bowel sounds, Soft and benign. Integumentary: No rashes. skin warm and dry Neurological: Normal speech Vitals Reviewed Labs Reviewed Assessment and Plan Problem List COPD Exacerbation Atrial Fibrillation Hypertension Glaucoma Spinal Stenosis s/p spinal decompression 07/2023 COPD Exacerbation - CTA chest negative for pulmonary embolism - CT soft tissue neck 11/22: No acute process is visualized - immunizations reported up to date by patient and her sons - supplemental O2 per protocol - nebulizer treatments - prednisone PO - blood cultures 11/21: no growth to date - Sputum culture pending - pulmonology consulted Atrial fibrillation - continue home xarelto Hypertension - continue home antihypertensives - Heart healthy diet Glaucoma - continue home eye drops Code: full VTE: xarelto Dispo: Home in ~24 hours.
[2023-11-24 07:44] LABS: Hematocrit 38.3 % (36.0-45.0); Hemoglobin 12.8 g/dL (12.0-15.0); MCH 28.9 pg (27.0-35.0); MCHC 33.5 g/dL (32.0-36.0); MCV 86.1 fL (80-100); MPV 8.5 fL (7.6-11.3); Platelets 281 thou/uL (152-406); RBC Red Blood Cell Count 4.44 M/uL (3.86-4.86); Red Cell Distribution Width 14.3 % (12.1-15.2)
[2023-11-24 08:09] LABS: Anion Gap 9.5 mEq/L (5.0-15.0); Potassium 3.5 mEq/L (3.5-5.1)
[2023-11-24] MEDS: hydroCHLOROthiazide 25 MG TAB PO SCH (08:26)
[2023-11-24] MEDS: NEBIVOLOL HCL 20 MG TABLET PO SCH (08:27)
[2023-11-24] MEDS: HOME MED 1 EA UNK (Dorzolamide Hcl/Pf [Dorzolamide 2% Eye Drop] 10 ML Drops) OPTH SCH (09:00)
--- NOTE | 2023-11-24 09:43 | P.PN ---
Subjective Date of Service: 11/24/23 Chief Complaint: Shortness of breath Subjective: Improving (Patient has improved significantly) Review of Systems Unremarkable Physical Examination - Vital Signs Temperature: 97.3 F Blood Pressure: 155/76 Pulse: 68 Respirations: 16 Pulse Ox (%): 96 - Physical Exam General: Alert, Oriented x3 Respiratory: Clear to auscultation bilaterally Cardiovascular: No edema, Normal pulses Assessment And Plan - Current Problems (Diagnosis) (1) Respiratory distress Current Visit: Yes Status: Acute Plan: Patient has improved significantly breathing is better there is no evidence of emboli neck CT did not show any stenosis labs chemistries all reviewed discharged on Advair 251 puff twice a day low-dose prednisone 10 mg twice a day follow-up with me in 2 weeks she will need outpatient pulmonary function testing has mild glaucoma takes drops
[2023-11-24 11:38] VITALS: BP 151/70; TEMP 97.2; O2SAT 94
[2023-11-24] MEDS ORDERED: LATANOPROST OPTH SCH (21:00)
--- NOTE | 2023-11-24 22:34 | P.DS ---
Admission Date: 11/22/23 Discharge Date: 11/24/23 Disposition: ROUTINE DISCHARGE Discharge Condition: GOOD Reason for Admission: Shortness of breath Brief History of Present Illness: 88 yo female with a PMH of HTN, Atrial fibrillation on xarelto, glaucoma and seasonal allergies who presented to the ED with complaints of shortness of breath x 1 day. She also reports cough that has been present since spinal decompression surgery in July 2023. Patient initially noted to be in mild/moderate respiratory distress upon arrival. She was given dose of steroid and duoneb in ED with improvement. CTA chest negative for pulmonary embolism. No leukocytosis. Afebrile. Admitted for COPD exacerbation. Pulmonology consulted. Hospital Course: Problem List COPD Exacerbation Atrial Fibrillation Hypertension Glaucoma Spinal Stenosis s/p spinal decompression 07/2023 Presented with severe dyspnea on 11/22/2023. CTA chest negative for pulmonary embolism. She was admitted for COPD exacerbation, pulmonology was consulted. She was treated with steroids, nebulizer treatments and Rocephin. Weaned off supplemental oxygen, ambulated around unit without shortness of breath or any other complaints. Deemed stable for discharge. New Medications: - Advair 1 puff twice per day - prednisone 10 mg p.o. twice per day Follow-ups: - Box Office Manager Dr. Tavarez in 1 [address] Tavarez office to arrange appointment. -Follow-up with your primary care physician in 1 to 2 weeks Physical Exam General: Alert, oriented x3. in no apparent distress. HEENT: Atraumatic, Normocephalic. Corrective lenses Respiratory: Slightly diminished. On 2L nasal cannula. nonlabored repirations. Cardiovascular: No edema, Normal pulses, Regular rate/rhythm Gastrointestinal: Normal bowel sounds, Soft and benign. Integumentary: No rashes. skin warm and dry Neurological: Normal speech Vital Signs/Physical Exam: Temp Pulse Resp BP Pulse Ox 97.2 F 68 16 151/70 H 94 11/24/23 11:30 11/24/23 11:30 11/24/23 11:30 11/24/23 11:30 11/24/23 11:30 Laboratory Data at Discharge: WBC 20.20 thou/uL (4.3-10.9) H 11/24/23 07:35 Hgb 12.8 g/dL (12.0-15.0) 11/24/23 07:35 Hct 38.3 % (36.0-45.0) 11/24/23 07:35 Plt Count 281 thou/uL (152-406) D 11/24/23 07:35 PT 14.6 SECONDS (9.5-12.5) H 11/22/23 13:37 INR 1.34 11/22/23 13:37 APTT 34.3 SECONDS (24.3-36.9) 11/22/23 13:37 Sodium 135 mEq/L (136-145) L 11/24/23 07:35 Potassium 3.5 mEq/L (3.5-5.1) 11/24/23 07:35 BUN 29 mg/dL (7-18) H 11/24/23 07:35 Creatinine 1.02 mg/dL (0.55-1.02) 11/24/23 07:35 Glucose 171 mg/dL (74-106) H 11/24/23 07:35 Magnesium 2.0 mg/dL (1.6-2.4) 11/22/23 13:37 Total Bilirubin 0.5 mg/dL (0.2-1.0) 11/23/23 06:50 AST 29 U/L (15-37) 11/23/23 06:50 ALT 27 U/L (13-56) 11/23/23 06:50 Alkaline Phosphatase 72 U/L (45-117) 11/23/23 06:50 Lipase 24 U/L (13-75) 11/22/23 13:37 Home Medications: Cyclobenzaprine HCl [Flexeril] 5 mg PO BEDTIME 09/04/21 Rivaroxaban [Xarelto] 20 mg PO BEDTIME 09/04/21 hydroCHLOROthiazide [Hydrochlorothiazide] 25 mg PO DAILY 09/04/21 Ascorbate Calcium [Vitamin C] 500 mg PO BEDTIME 11/23/23 Bevacizumab 10 mg IO SEECOM 11/23/23 Calcium Carb/Mag Ox/Zinc Sulf [Vvm-Vrx-Hhdm 334-134-5 mg Tab] 2 tab PO BEDTIME 11/23/23 Calcium Carb/Vitamin D3/Vit K1 [Citracal Soft Chew] 1 each PO DAILY 11/23/23 Cyanocobalamin (Vitamin B-12) [Vitamin B-12] 1,000 mcg PO DAILY 11/23/23 Dorzolamide HCl/Pf [Dorzolamide 2% Eye Drop] 1 drop EACH EYE BID 11/23/23 Gabapentin 300 mg PO TID 11/23/23 Glucosamine/Chondr Ray A Sod [Osteo Bi-Flex Caplet] 2 each PO BEDTIME 11/23/23 Hydrocodone 10/APAP 325 [[place] 10/325*] 0.5 tab PO BEDTIME 11/23/23 Latanoprost 2.5 ml RIGHT EYE BEDTIME 11/23/23 Mv-Mn/Folic/Lutein/Herbal 293 [Alive Women's 50 Plus Vitamins] 1 each PO DAILY 11/23/23 Nebivolol HCl [Bystolic] 20 mg PO DAILY 11/23/23 [place]-3S/Dha/Epa/Fish Oil [Fish Oil [place]-3 Softgel] 1 each PO DAILY 11/23/23 Red Yeast Rice 1,200 mg PO BEDTIME 11/23/23 Vitamin E [E-Vitamin] 400 iu PO DAILY 11/23/23 Fluticasone/Salmeterol [Advair 250-50 Diskus] 1 each IH BID* #1 diskus 11/24/23 predniSONE [Deltasone*] 10 mg PO BID 7 Days #14 tab 11/24/23 New Medications: Fluticasone/Salmeterol [Advair 250-50 Diskus] 1 each IH BID* #1 diskus predniSONE [Deltasone*] 10 mg PO BID 7 Days #14 tab Physician Discharge Instructions: PROBLEM: (list out Acute Problems for the Current visit) GOAL: Clear understanding of disease process INSTRUCTIONS: Diet: AHA Activity: Ad isa Presented with severe dyspnea on 11/22/2023. CTA chest negative for pulmonary embolism. She was admitted for COPD exacerbation, treated with steroids, nebulizer treatments and Rocephin. She was/ evaluated by pulmonology. Now off supplemental oxygen, ambulated around unit without shortness of breath. Deemed stable for discharge. New Medications: - Advair 251 puff twice per day - prednisone 10 mg p.o. twice per day Follow-ups: - Box Office Manager Dr. Tavarez in 1 [address] Tavarez office to arrange appointment. -Follow-up with your primary care physician in 1 to 2 weeks Diet: AHA Activity: Ad isa Followup: Cristian Tavarez MD [ACTIVE - CAN ADMIT] - 1-2 Weeks (Call for appointment.) Tyrell Valles MD [Primary Care Provider] - 1-2 Weeks (Call for appointment.)
--- NOTE | 2023-11-25 13:03 | EKG ---
Test Date: 2023-11-22 Test Time: 16:10:16 Pipe Fitter: SYMONE MEASUREMENT RESULTS: Intervals: Rate: 75 WI: 162 QRSD: 80 QT: 382 QTc: 426 [place]: P: 35 WI: 162 QRS: 24 T: 34 INTERPRETIVE STATEMENTS: Sinus rhythm with marked sinus arrhythmia Otherwise normal ECG Compared to ECG 11/22/2023 13:37:45 Atrial fibrillation no longer present Electronically Signed On 11-25-23 12:56:46 CDT by Nolan Ann
--- NOTE | 2023-11-25 13:04 | EKG ---
Test Date: 2023-11-22 Test Time: 13:37:45 Hazmat Cdl A Driver: LIDIAW MEASUREMENT RESULTS: Intervals: Rate: 77 [place]: QRSD: 78 QT: 364 QTc: 411 [place]: P: [place]: QRS: 26 T: 49 INTERPRETIVE STATEMENTS: Normal sinus Rhythm Electronically Signed On 11-25-23 12:57:31 CDT by Nolan Ann
== END 2023-11-24 14:21 | disposition home or self-care (01) ==
LOC: ER 13:21 → ERHOLD 17:26 → 4TH 20:54
PROVIDERS: ADMIT Hospitalist; ATTEND Hospitalist
DX: J44.1 Chronic obstructive pulmonary disease with (acute) exacerbation (principal); R06.03 Acute respiratory distress; R05.9 Cough, unspecified; I10 Essential (primary) hypertension; I48.11 Longstanding persistent atrial fibrillation; J30.2 Other seasonal allergic rhinitis; Z88.0 Allergy status to penicillin; Z79.01 Long term (current) use of anticoagulants; Z98.890 Other specified postprocedural states; H40.9 Unspecified glaucoma; M48.00 Spinal stenosis, site unspecified
CPT/HCPCS: 87040 ×2; 87070; 85025 ×2; 81001; 80048 ×2; 36415 ×2; 83735; 82550; 87205; 85610; 85379; 80076; 85730; 85027; 84484; 83690; 80053; 83880; 70490; 71275; 71045; 94640; 82805; 94760 ×5; 36600; Q9967; J1940; J7613 ×9; J7644 ×9; J2919 ×5; J0696 ×2; 93005; G0378; J7512; J7608

== ENCOUNTER 2025-05-06 08:58 | Emergency (ER) | payer OTHER ==
--- OUTSIDE RECORDS SUMMARY | 2025-05-06 09:39 | XMS REPORT | Continuity of Care Document ---
Author Name Unknown Address [address] [facility] [address] [place] [address] Organization [facility] [place] Address [address] [facility]. [address] [place] [address] Care Team Providers Care Ed Special Education Teacher Name Role Phone Tyrell Valles MD Primary Care Physician AUBREE HIGHTOWER Attending Clinician Unavail able Aubree Hightower MD Attending Clinician [phone] Payers Payer Name Policy Type Policy Number Effective Date Expirati on Date Source [employer] MED[employer]ARE ADVANTAGE Medicare [id number] 2023 00:00:00 Problems Condition Name Condition Details Condition Category Status Onset Date Resolution Date Last Treatment Date Treating Clinician Comments Source Respirator y distress Respirator y distress Disease Active 3-05 00:00: 00 Dwayne Puckett Epic Atrial fibrillati on (CMS/HCC) Atrial fibrillati on (CMS/HCC) Disease Active 03-31 00:00: 00 Dwayne Puckett Epic Lumbar radiculopa thy Lumbar radiculopa thy Disease Active 03-31 00:00: 00 Dwayne Puckett Epic Spinal stenosis of lumbosacra l region Spinal stenosis of lumbosacra l region Disease Active 03-31 00:00: 00 Dwayne Puckett Epic Peripheral neuropathy Peripheral neuropathy Disease Active 03-31 00:00: 00 Dwayne Puckett Epic Chronic pain syndrome Chronic pain syndrome Disease Active 03-31 00:00: 00 Dwayne Puckett Epic Lumbosacra l spondylosi s without myelopathy Lumbosacra l spondylosi s without myelopathy Disease Active 03-31 00:00: 00 Dwayne Solis 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 Disease Active 03-31 00:00: 00 Dwayne Solis Sacroiliac joint pain Sacroiliac joint pain Disease Active 03-31 00:00: 00 Dwayne Solis 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 Disease Active 03-31 00:00: 00 Dwayne Solis Altered mental status Altered mental status Disease Active 09-07 00:00: 00 Dwayne Solis TIA (transient ischemic attack) TIA (transient ischemic attack) Disease Active 09-07 00:00: 00 Dwayne Solis 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 Disease Active 09-19 00:00: 00 Dwayne Solis Bilateral primary osteoarthr itis of knee Bilateral primary osteoarthr itis of knee Disease Active 09-19 00:00: 00 Dwayne Solis 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 Disease Active 09-19 00:00: 00 Dwayne Solis Essential (primary) hypertensi on Essential (primary) hypertensi on Disease Active 09-19 00:00: 00 Dwayne Solis Muscle wasting and atrophy, not elsewhere classified , unspecifie d site Muscle wasting and atrophy, not elsewhere classified , unspecifie d site Disease Active 09-19 00:00: 00 Dwayne Solis Muscle weakness (generaliz ed) Muscle weakness (generaliz ed) Disease Active 09-19 00:00: 00 Dwayne Solis 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 of left artificial knee joint Disease Active 09-19 00:00: 00 Dwayne Solis Unspecifie d lack of coordinati on Unspecifie d lack of coordinati on Disease Active 09-19 00:00: 00 Dwayne Solis 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 Disease Active 09-13 00:00: 00 Dwayne Solis Encounter for other specified aftercare Encounter for other specified aftercare Disease Resolve d 09-19 00:00: 00 2024-03-31 00:00:00 2024-03-31 13:29:22 Dwayne Solis Allergies, Adverse Reactions, Alerts Allergy Name Allergy Type Status Severity Reaction(s) Onset Date Inactive Date Treating Clinician Comments Source Penicill amine Allergy to substanc e Active Hives 03-31 00:00: 00 Dwayne Puckett [facility] PENICILL AMINE DRUG INGREDI Active Hives 03-31 00:00: 00 MHEOUT Penicill ins Drug Allergy Active Hives 09-06 00:00: 00 Other Reaction( s): Itching/H irlanda/Rash Dwayne Solis PENICILL INS Drug Class Active Hives 09-06 00:00: 00 MHEOUT ALLERGIE S NOT ON FILE SYSTEMIC Active MHEOUT Social History Social Habit Start Date Stop Date Quantity Comments Source Gender identity 2023-10-20 01:55:25 Identifies as female gender (finding) [facility] Sexual orientation [facility] ASSERTION Possible [facility] Alcoholic beverage intake 2025-03-10 00:00:00 2025-03-10 00:00:00 Lifetime non-drinker (finding) [facility] History of Social function 2025-03-10 00:00:00 2025-03-10 00:00:00 [facility] Tobacco use and exposure 2024-03-31 00:00:00 2024-03-31 00:00:00 Smokeless tobacco non-user [facility] Sex 2023-10-20 01:55:25 2023-10-20 01:55:25 Female (finding) [facility] Smoking Status Start Date Stop Date Source Never smoked tobacco Dwayne Puckett [facility] Medications Ordered Medication Name Filled Medication Name Start Date Stop Date Current Medication? Ordering Clinician Indication Dosage Frequency Signature (SIG) Comments Components Source gabapentin (Neurontin) 300 MG capsule gabapentin (Neurontin) 300 MG capsule 01-27 00:00: 00 Yes 300mg [id number] 3D TAKE 1 CAPSULE BY MOUTH THREE TIMES A DAY Memshameka Solis Multiple Vitamins-Mi nerals (PreserVisi on AREDS) tablet Multiple Vitamins-Mi nerals (PreserVisi on AREDS) tablet 3-05 13:32: 33 Yes QD Take by mouth 1 time each day. Dwayne Solis gabapentin (Neurontin) 300 MG capsule gabapentin (Neurontin) 300 MG capsule 2023-07 2-31 00:00: 00 Yes 300mg [id number] 3D TAKE 1 CAPSULE BY MOUTH THREE TIMES A DAY Dwayne Solis HYDROcodone -acetaminop hen (Carrie) 10-325 MG tablet HYDROcodone -acetaminop hen (Carrie) 10-325 MG tablet 4-27 00:00: 00 Yes .5{tbl} 0.5 tablets. Dwayne Solis gabapentin (Neurontin) 300 MG capsule gabapentin (Neurontin) 300 MG capsule 2022-07 2- 00:00: 00 Yes 300mg 300 mg = 1 cap, PO, TID, # 270 cap, 1 Refill(s), Pharmacy: [id number], 160.02, cm, 05/15/23 14:55:00 CDT, Height, 76.818, kg, 05/15/23 14:55:00 CDT, Weight Dwayne Solis Calcium Carb-Cholec alciferol (CALCIUM 500 + D PO) Calcium Carb-Cholec alciferol (CALCIUM 500 + D PO) 9-14 00:00: 00 Yes 140mg CHEW, BID, 0 Refill(s) Dwayne Puckett [facility] Vital Signs Vital Name Observation Time Observation Value Comments S ource BMI 2025-03-10 13:19:00 29.08 kg/m2 Varun Puckett [facility] Oxygen saturation in Arterial blood by Pulse oximetry 2025-03-10 13:19:00 98 /min [facility] Systolic blood pressure 2025-03-10 13:19:00 145 mm[Hg] [facility] Diastolic blood pressure 2025-03-10 13:19:00 71 mm[Hg] [facility] Heart rate 2025-03-10 13:19:00 66 /min [facility] Body temperature 2025-03-10 13:19:00 36.89 Tami [facility] Respiratory rate 2025-03-10 13:19:00 16 /min [facility] Body height 2025-03-10 13:19:00 157.5 cm Varun [facility] [place] [facility] Body weight 2025-03-10 13:19:00 72.122 kg Varun rial [place] [facility] BMI 2025-03-10 13:19:00 29.08 kg/m2 Varun rial [place] [facility] Oxygen saturation in Arterial blood by Pulse oximetry 2025-03-10 13:19:00 98 /min [facility] Systolic blood pressure 2025-03-10 13:19:00 145 mm[Hg] [facility] Diastolic blood pressure 2025-03-10 13:19:00 71 mm[Hg] [facility] Heart rate 2025-03-10 13:19:00 66 /min [facility] [place] [facility] Body temperature 2025-03-10 13:19:00 36.89 [facility] Respiratory rate 2025-03-10 13:19:00 16 /min [facility] Body height 2025-03-10 13:19:00 157.5 cm Varun [facility] Body weight 2025-03-10 13:19:00 72.122 kg Varun rial [place] [facility] Oxygen saturation in Arterial blood by Pulse oximetry 2024-09-30 13:33:00 98 /min [facility] Systolic blood pressure 2024-09-30 13:33:00 143 mm[Hg] [facility] Diastolic blood pressure 2024-09-30 13:33:00 70 mm[Hg] [facility] Heart rate 2024-09-30 13:33:00 77 /min [facility] [place] [facility] Body temperature 2024-09-30 13:33:00 36.78 Tami [facility] Respiratory rate 2024-09-30 13:33:00 16 /min [facility] Body height 2024-09-30 13:33:00 157.5 cm Varun rial [place] [facility] Body weight 2024-09-30 13:33:00 72.576 kg Varun rial [place] [facility] BMI 2024-09-30 13:33:00 29.26 kg/m2 Varun rial [place] [facility] Oxygen saturation in Arterial blood by Pulse oximetry 2024-09-30 13:33:00 98 /min [facility] Systolic blood pressure 2024-09-30 13:33:00 143 mm[Hg] [facility] Diastolic blood pressure 2024-09-30 13:33:00 70 mm[Hg] [facility] Heart rate 2024-09-30 13:33:00 77 /min [facility] [place] [facility] Body temperature 2024-09-30 13:33:00 36.78 Tami [facility] Respiratory rate 2024-09-30 13:33:00 16 /min [facility] Body height 2024-09-30 13:33:00 157.5 cm [facility] Body weight 2024-09-30 13:33:00 72.576 kg Varun [facility] [place] [facility] BMI 2024-09-30 13:33:00 29.26 kg/m2 Varun rial [place] [facility] Systolic blood pressure 2024-03-31 13:29:00 124 mm[Hg] [facility] Diastolic blood pressure 2024-03-31 13:29:00 57 mm[Hg] [facility] Heart rate 2024-03-31 13:29:00 63 /min [facility] [place] [facility] Body temperature 2024-03-31 13:29:00 37 [facility] Respiratory rate 2024-03-31 13:29:00 16 /min [facility] Body height 2024-03-31 13:29:00 160 [facility] Body weight 2024-03-31 13:29:00 71.215 kg [facility] BMI 2024-03-31 13:29:00 27.81 kg/m2 [facility] Oxygen saturation in Arterial blood by Pulse oximetry 2024-03-31 13:29:00 95 /min [facility] Systolic blood pressure 2024-03-31 13:29:00 124 mm[Hg] [facility] Diastolic blood pressure 2024-03-31 13:29:00 57 mm[Hg] [facility] Heart rate 2024-03-31 13:29:00 63 /min [facility] [place] [facility] Body temperature 2024-03-31 13:29:00 37 [facility] Respiratory rate 2024-03-31 13:29:00 16 /min [facility] Body height 2024-03-31 13:29:00 160 cm [facility] Body weight 2024-03-31 13:29:00 71.215 kg [facility] BMI 2024-03-31 13:29:00 27.81 kg/m2 [facility] Oxygen saturation in Arterial blood by Pulse oximetry 2024-03-31 13:29:00 95 /min [facility] Encounters Start Date/Time End Date/Time Encounter Type Admission Type Attending [facility] Care Department Encounter ID Source 2025-03-10 13:15:47 2025-03-10 13:34:12 Outpatient Elective AUBREE HIGHTOWER MHEOUT MHEOUT [id number] EOUT 2025-03-10 13:15:00 2025-03-10 13:34:12 Office Visit Aubree Hightower [id number] Dwayne cerda [facility] 2024-09-30 13:15:00 2024-09-30 13:50:36 Office Visit Aubree Hightower [id number] Dwayne cerda [facility] 2024-09-30 13:02:40 2024-09-30 13:50:36 Outpatient Elective AUBREE HIGHTOWER MHKarlaOUT MHEOUT [id number] EOUT 2024-07-27 00:00:00 2024-07-28 09:57:27 Refill Aubree Hightower [id number] Dwayne cerda [facility] 2024-03-31 13:21:56 2024-03-31 13:51:41 Outpatient Elective AUBREE HIGHTOWER KarlaOUT MHEOUT [id number] EOUT 2024-03-31 13:15:00 2024-03-31 13:30:00 Office Visit Laureen Aubree Gray [id number] Dwayne cerda [facility] Notes Date/Time Note Provider Source 2025-03-10 13:35:43 [facility]2025-08-13 13:35:43* Aubree Hightower MD - 03/10/2025 1:15 PM CDT History of Present Illness Neuropathy The patient is an 89-year-old female presenting for follow-up of neuropathy. The patient reports persistent neuropathy, which she describes as discomfort that is variably controlled by gabapentin. She takes gabapentin three times daily: with breakfast, dinner, and at 10:00 PM. She notes that the medication helps manage the discomfort "reasonably well," but its effectiveness is inconsistent. She finds that regular exercise, including using an exercise bike daily from5:00 to 6:00 PM and shopping once a week, helps alleviate her symptoms. However, if she neglects these activities, her discomfort worsens. Despite her efforts to stay active, she expresses frustration that the neuropathy "won't go away." Her children are reportedly protective and discourage her from engaging in certain activities due to concerns about falls. She mentions that her son insists she follow their guidance if she wants to continue living independently at home. Allergies as of 03/10/2025 - Reviewed 5Allergen Reaction Noted Penicillins Hives 09/06/2015 Penicillamine Hives 03/31/2024 has a current medication list which includes the following prescription(s): alendronate sodium, ascorbic acid, calcium carb-cholecalciferol, cholecalciferol, cyanocobalamin, fexofenadine hcl, gabapentin, glucosamine-chondroitin, hydrochlorothiazide, hydrocodone-acetaminophen, magnesium oxide, metoprolol tartrate, multiple vitamin, preservision areds, multiple vitamins-minerals, omega-3 fatty acids, and rivaroxaban. Neurological: (+) pain Vitals:03/10/25 1319 BP: 145/71 Pulse: 66 Resp: 16 Temp: 36.9 ?C (98.4 ?F) SpO2: 98% Neurological Exam Mental Status Awake and alert. Speech is normal. Cranial NervesCN II: Visual acuity is normal. CN III, IV, : Extraocular movements intact bilaterally. Pupils equal round and reactive to light bilaterally. CN VII: Full and symmetric facial movement. CN IX, X: Palate elevates symmetrically CN XI: Shoulder shrug strength is normal. CN XII: Tongue midline without atrophy or fasciculations. MotorStrength is 5/5 throughout all four extremities. SensoryTemperature abnormality: Decreased distally. Vibration abnormality: Decreased distally. ReflexesDeep tendon reflexes: Suppressed but symmetric. Gait Ambulates with a rolling walker. Results for orders placed or performed in visit on 04/11/23 Sedimentation Rate Collection Time: 04/12/23 9:31 AM Result Value Ref Range Sed Rate 2 < OR = 30 mm/hr Immunofixation (KIA) Collection Time: 04/12/23 9:31 AM Result Value Ref Range KIA Ser Interp SEE COMMENT Vitamin B1 Level Collection Time: 04/12/23 9:31 AM Result Value Ref Range Vitamin B1 195 (H) 78 - 185 mmol/L Vitamin B12 Level Collection Time: 04/12/23 9:31 AM Result Value Ref Range Vitamin B12 Lvl >2000 (H) 200 - 1100 pg/mL No MRI head results found for the past 12 months Your note content is not currently available. Please go to the Ambienceactivity and push your notes to view them here. Assessment & Plan# Peripheral polyneuropathy (G62.9) - Chronic condition; symptoms reasonably well controlled with gabapentin, though relief is variable. - Continue gabapentin as currently taken (morning with breakfast, evening with dinner, and at 10 PM). - Discussed option of alpha-lipoic acid; reviewed potential for GI upset; patient declined. - Educated on chronic nature of neuropathy and importance of maintaining exercise regimen for symptom management. - Follow-up in 6 months. 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 The patient reports persistent neuropathy, which she describes as discomfort that is variably controlled by gabapentin. She takes gabapentin three times daily: with breakfast, dinner, and at 10:00 PM. She notes that the medication helps manage the discomfort "reasonably well," but its effectiveness is inconsistent. She finds that regular exercise, including using an exercise bike daily from5:00 to 6:00 PM and shopping once a week, helps alleviate her symptoms. However, if she neglects these activities, her discomfort worsens. Despite her efforts to stay active, she expresses frustration that the neuropathy "won't go away." Her children are reportedly protective and discourage her from engaging in certain activities due to concerns about falls. She mentions that her son insists she follow their guidance if she wants to continue living independently at home. Allergies as of 03/10/2025 - Reviewed 5Allergen Reaction Noted Penicillins Hives 09/06/2015 Penicillamine Hives 03/31/2024 has a current medication list which includes the following prescription(s): alendronate sodium, ascorbic acid, calcium carb-cholecalciferol, cholecalciferol, cyanocobalamin, fexofenadine hcl, gabapentin, glucosamine-chondroitin, hydrochlorothiazide, hydrocodone-acetaminophen, magnesium oxide, metoprolol tartrate, multiple vitamin, preservision areds, multiple vitamins-minerals, omega-3 fatty acids, and rivaroxaban. Neurological: (+) pain Vitals:03/10/25 1319 BP: 145/71 Pulse: 66 Resp: 16 Temp: 36.9 ?C (98.4 ?F) SpO2: 98% Neurological Exam Mental Status Awake and alert. Speech is normal. Cranial NervesCN II: Visual acuity is normal. CN III, IV, : Extraocular movements intact bilaterally. Pupils equal round and reactive to light bilaterally. CN VII: Full and symmetric facial movement. CN IX, X: Palate elevates symmetrically CN XI: Shoulder shrug strength is normal. CN XII: Tongue midline without atrophy or fasciculations. MotorStrength is 5/5 throughout all four extremities. SensoryTemperature abnormality: Decreased distally. Vibration abnormality: Decreased distally. ReflexesDeep tendon reflexes: Suppressed but symmetric. Gait Ambulates with a rolling walker. Results for orders placed or performed in visit on 04/11/23 Sedimentation Rate Collection Time: 04/12/23 9:31 AM Result Value Ref Range Sed Rate 2 < OR = 30 mm/hr Immunofixation (KIA) Collection Time: 04/12/23 9:31 AM Result Value Ref Range KIA Ser Interp SEE COMMENT Vitamin B1 Level Collection Time: 04/12/23 9:31 AM Result Value Ref Range Vitamin B1 195 (H) 78 - 185 mmol/L Vitamin B12 Level Collection Time: 04/12/23 9:31 AM Result Value Ref Range Vitamin B12 Lvl >2000 (H) 200 - 1100 pg/mL No MRI head results found for the past 12 months Your note content is not currently available. Please go to the Ambienceactivity and push your notes to view them here. Assessment & Plan# Peripheral polyneuropathy (G62.9) - Chronic condition; symptoms reasonably well controlled with gabapentin, though relief is variable. - Continue gabapentin as currently taken (morning with breakfast, evening with dinner, and at 10 PM). - Discussed option of alpha-lipoic acid; reviewed potential for GI upset; patient declined. - Educated on chronic nature of neuropathy and importance of maintaining exercise regimen for symptom management. - Follow-up in 6 months. 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 Helps, no side effects. Back does not really bother her on a day-to-day basis after the decompression. Does get occasional burning pains in her neck, prior plain film cervical spine demonstrated spondylosis as well. If the pain radiates into the upper extremities will get a new plain film and proceed. Allergies as of 09/30/2024 - Reviewed 09/30/2024 Allergen Reaction Noted Penicillins Hives 09/06/2015 Penicillamine Hives 03/31/2024 has a current medication list which includes the following prescription(s): alendronate sodium, ascorbic acid, calcium carb-cholecalciferol, cholecalciferol, cyanocobalamin, fexofenadine hcl, gabapentin, glucosamine-chondroitin, hydrochlorothiazide, hydrocodone-acetaminophen, magnesium oxide, metoprolol tartrate, multiple vitamin, preservision areds, multiple vitamins-minerals, omega-3 fatty acids, and rivaroxaban. Vitals:09/30/24 1333 BP: 143/70 Pulse: 77 Resp: 16 Temp: 36.8 ?C (98.2 ?F) SpO2: 98% Neurological Exam Mental Status Awake and alert. Speech is normal. Cranial NervesCN II: Visual acuity is normal. CN III, IV, : Extraocular movements intact bilaterally. Pupils equal round and reactive to light bilaterally. CN VII: Full and symmetric facial movement. CN IX, X: Palate elevates symmetrically CN XI: Shoulder shrug strength is normal. CN XII: Tongue midline without atrophy or fasciculations. MotorStrength is 5/5 throughout all four extremities. SensoryTemperature abnormality: Decreased distally. Vibration abnormality: Decreased distally. ReflexesDeep tendon reflexes: Suppressed but symmetric. Gait Ambulates with a rolling walker. Results for orders placed or performed in visit on 04/11/23 Sedimentation Rate Collection Time: 04/12/23 9:31 AM Result Value Ref Range Sed Rate 2 < OR = 30 mm/hr Immunofixation (KIA) Collection Time: 04/12/23 9:31 AM Result Value Ref Range KIA Ser Interp SEE COMMENT Vitamin B1 Level Collection Time: 04/12/23 9:31 AM Result Value Ref Range Vitamin B1 195 (H) 78 - 185 mmol/L Vitamin B12 Level Collection Time: 04/12/23 9:31 AM Result Value Ref Range Vitamin B12 Lvl >2000 (H) 200 - 1100 pg/mL No MRI head results found for the past 12 months Assessment & PlanDiagnoses and all orders for this visit: Peripheral polyneuropathy Lumbar radiculopathy Stable, continue Gabapentin ICAL LAB TECHNICIAN [id number] 14:01:47Upcoming Encounters Health Maintenance Due Date Last Done Comments Lipid Panel 1935 Medicare Annual Wellness (AWV) 1935 Annual Physical 1938 DTaP/Tdap/Td Vaccines (1 - Tdap) 1955 Respiratory Syncytial Virus (RSV) or >=60 (1 - 1-dose 75+ series) 2011 Pneumococcal Vaccine: 65+ Ye ars (2 of 2 - PCV) 08/30/2013 08/30/2012 Zoster Vaccines (2 of 2) 06/07/2022 04/12/2022 Influenza Vaccine (#1) 2024 HIB Vaccines Aged Out No longer eligi ble based on patient's age to complete this topic HPV Vaccines Aged Out No longer eligi ble based on patient's age to complete this topic Hepatitis A Vaccines Aged Out No long er eligible based on patient's age to complete this topic Hepatitis B Vaccines Aged Out No long er eligible based on patient's age to complete this topic IPV Vaccines Aged Out No longer eligi ble based on patient's age to complete this topic Meningococcal Vaccine Aged Out No nellie clemente eligible based on patient's age to complete this topic Rotavirus Vaccines Aged Out No longer eligible based on patient's age to complete this topic [facility] HospitalIobhyrw1036-93-30 14:01:47 Diagnosis Peripheral polyneuropathy - Primary Lumbar radiculopathy Thoracic or lumbosacral neuritis or radiculitis, unspecified [facility] HospitalVmjkndo7544-66-30 14:01:47 [facility] HospitalOlnaogx8456-91-20 14:01:47* [facility] HospitalQkpogfm7823-99-75 14:01:47 [facility]Ovpdcjh2646-41-22 14:01:47* Aubree Hightower MD - 09/30/2024 1:15 PM CHEMICAL LAB TECHNICIAN History of Present Illness HPI Generally stable, on Gabapentin TID. Helps, no side effects. Back does not really bother her on a day-to-day basis after the decompression. Does get occasional burning pains in her neck, prior plain film cervical spine demonstrated spondylosis as well. If the pain radiates into the upper extremities will get a new plain film and proceed. Allergies as of 09/30/2024 - Reviewed 09/30/2024 Allergen Reaction Noted Penicillins Hives 09/06/2015 Penicillamine Hives 03/31/2024 has a current medication list which includes the following prescription(s): alendronate sodium, ascorbic acid, calcium carb-cholecalciferol, cholecalciferol, cyanocobalamin, fexofenadine hcl, gabapentin, glucosamine-chondroitin, hydrochlorothiazide, hydrocodone-acetaminophen, magnesium oxide, metoprolol tartrate, multiple vitamin, preservision areds, multiple vitamins-minerals, omega-3 fatty acids, and rivaroxaban. Vitals:09/30/24 1333 BP: 143/70 Pulse: 77 Resp: 16 Temp: 36.8 ?C (98.2 ?F) SpO2: 98% Neurological Exam Mental Status Awake and alert. Speech is normal. Cranial NervesCN II: Visual acuity is normal. CN III, IV, : Extraocular movements intact bilaterally. Pupils equal round and reactive to light bilaterally. CN VII: Full and symmetric facial movement. CN IX, X: Palate elevates symmetrically CN XI: Shoulder shrug strength is normal. CN XII: Tongue midline without atrophy or fasciculations. MotorStrength is 5/5 throughout all four extremities. SensoryTemperature abnormality: Decreased distally. Vibration abnormality: Decreased distally. ReflexesDeep tendon reflexes: Suppressed but symmetric. Gait Ambulates with a rolling walker. Results for orders placed or performed in visit on 04/11/23 Sedimentation Rate Collection Time: 04/12/23 9:31 AM Result Value Ref Range Sed Rate 2 < OR = 30 mm/hr Immunofixation (KIA) Collection Time: 04/12/23 9:31 AM Result Value Ref Range KIA Ser Interp SEE COMMENT Vitamin B1 Level Collection Time: 04/12/23 9:31 AM Result Value Ref Range Vitamin B1 195 (H) 78 - 185 mmol/L Vitamin B12 Level Collection Time: 04/12/23 9:31 AM Result Value Ref Range Vitamin B12 Lvl >2000 (H) 200 - 1100 pg/mL No MRI head results found for the past 12 months Assessment & PlanDiagnoses and all orders for this visit: Peripheral polyneuropathy Lumbar radiculopathy Stable, continue Gabapentin ICAL LAB TECHNICIAN [facility]landFvnbxhx9710-44-48 14:01:47Upcoming Encounters Health Maintenance Due Date Last Done Comments Lipid Panel 1935 Medicare Annual Wellness (AWV) 1935 Annual Physical 1938 DTaP/Tdap/Td Vaccines (1 - Tdap) 1955 Respiratory Syncytial Virus (RSV) or >=60 (1 - 1-dose 75+ series) 2011 Pneumococcal Vaccine: 65+ Ye ars (2 of 2 - PCV) 08/30/2013 08/30/2012 Zoster Vaccines (2 of 2) 06/07/2022 04/12/2022 Influenza Vaccine (#1) 2024 HIB Vaccines Aged Out No longer eligi ble based on patient's age to complete this topic HPV Vaccines Aged Out No longer eligi ble based on patient's age to complete this topic Hepatitis A Vaccines Aged Out No long er eligible based on patient's age to complete this topic Hepatitis B Vaccines Aged Out No long er eligible based on patient's age to complete this topic IPV Vaccines Aged Out No longer eligi ble based on patient's age to complete this topic Meningococcal Vaccine Aged Out No nellie clemente eligible based on patient's age to complete this topic Rotavirus Vaccines Aged Out No longer eligible based on patient's age to complete this topic [facility]Uqrstwe7080-15-51 14:01:47 Diagnosis Peripheral polyneuropathy - Primary Lumbar radiculopathy Thoracic or lumbosacral neuritis or radiculitis, unspecified [facility]landKvrilvk0145-91-72 14:01:47 [facility] HospitalUpnryfe9054-92-14 09:57:34* [facility] HospitalJppnluj2898-02-30 09:57:34 [facility]landOzkpizh9814-00-51 09:57:34Upcoming Encounters Health Maintenance Due Date Last Done Comments Lipid Panel 1935 Medicare Annual Wellness (AWV) 1935 Annual Physical 1939 DTaP/Tdap/Td Vaccines (1 - Tdap) 1955 Pneumococcal Vaccine: 65+ Ye ars (1 of 1 - PCV) 2001 Respiratory Syncytial Virus (RSV) or >=60 (1 - 1-dose 75+ series) 2011 Zoster Vaccines (2 of 2) 06/07/2022 04/12/2022 Influenza Vaccine (#1) 2024 HIB Vaccines Aged Out No longer eligi ble based on patient's age to complete this topic HPV Vaccines Aged Out No longer eligi ble based on patient's age to complete this topic Hepatitis A Vaccines Aged Out No long er eligible based on patient's age to complete this topic Hepatitis B Vaccines Aged Out No long er eligible based on patient's age to complete this topic IPV Vaccines Aged Out No longer eligi ble based on patient's age to complete this topic Meningococcal Vaccine Aged Out No nellie clemente eligible based on patient's age to complete this topic Rotavirus Vaccines Aged Out No longer eligible based on patient's age to complete this topic [facility]landTsptcra0878-28-03 09:57:34 [facility]landJaednch7086-33-43 13:49:22* [facility]landMpmijgw0220-22-05 13:49:22 [facility]landAzpfhle0384-63-98 13:49:22* Aubree Hightower MD - 03/31/2024 1:15 PM CDT History of Present Illness HPI Feet still bother her, feels like she wearing rubber socks. Has already had the lumbar spine decompressed. Using a rolling walker. Still taking the gabapentin. Had labs recently, had plain films of the spine in October we will request those results. Not really a lot of other interventions to offer the patient presently. Allergies as of 03/31/2024 - Reviewed 03/31/2024 Allergen Reaction Noted Penicillamine Hives 03/31/2024 Penicillins Hives 09/06/2015 has a current medication list which includes the following prescription(s): alendronate sodium, ascorbic acid, calcium carb-cholecalciferol, cholecalciferol, cyanocobalamin, fexofenadine hcl, glucosamine-chondroitin, hydrochlorothiazide, magnesium oxide, metoprolol tartrate, multiple vitamin, multiple vitamins-minerals, omega-3 fatty acids, rivaroxaban, and gabapentin. Vitals:03/31/24 1329 BP: 124/57 Pulse: 63 Resp: 16 Temp: 37 ?C (98.6 ?F) SpO2: 95% Neurological Exam Mental Status Awake and alert. Speech is normal. Cranial NervesCN II: Visual acuity is normal. CN III, IV, : Extraocular movements intact bilaterally. Pupils equal round and reactive to light bilaterally. CN VII: Full and symmetric facial movement. CN IX, X: Palate elevates symmetrically CN XI: Shoulder shrug strength is normal. CN XII: Tongue midline without atrophy or fasciculations. MotorStrength is 5/5 throughout all four extremities. SensoryTemperature abnormality: Decreased distally. Vibration abnormality: Decreased distally. ReflexesDeep tendon reflexes: Suppressed but symmetric. Gait Ambulates with a rolling walker. Results for orders placed or performed in visit on 04/11/23 Sedimentation Rate Result Value Ref Range Sed Rate 2 < OR = 30 mm/hr Immunofixation (KIA) Result Value Ref Range KIA Ser Interp SEE COMMENT Vitamin B1 Level Result Value Ref Range Vitamin B1 195 (H) 78 - 185 mmol/L Vitamin B12 Level Result Value Ref Range Vitamin B12 Lvl >2000 (H) 200 - 1100 pg/mL No MRI head results found for the past 12 months Assessment/PlanDiagnoses and all orders for this visit: Peripheral polyneuropathy Lumbar radiculopathy Continue the gabapentin, will request data for review [facility]landMwxrfru4373-88-80 13:49:22 [place] [id number] 13:49:22 Diagnosis Peripheral polyneuropathy - Primary Lumbar radiculopathy Thoracic or lumbosacral neuritis or radiculitis, unspecified [facility]landLycqkbm8965-99-82 13:49:22 [facility]
[2025-05-06 09:49] LABS: Absolute Lymphocytes (CBC) 1.5 K/uL (0.7-4.9); Hematocrit 38.1 % (36.0-45.0); Hemoglobin 12.8 g/dL (12.0-15.0); MCH 29.4 pg (27.0-35.0); MCHC 33.6 g/dL (32.0-36.0); MCV 87.6 fL (80-100); MPV 9.1 fL (7.6-11.3); Nucleated RBC Absolute Count 0.0 (0-0); Nucleated Red Blood Cells % 0.0 % (0-0); RBC Red Blood Cell Count 4.35 M/uL (3.86-4.86); White Blood Count 9.20 thou/uL (4.3-10.9)
[2025-05-06 09:56] LABS: PT Prothrombin Time 14.8 SECONDS (10-13.0); Protime INR 1.32
--- NOTE | 2025-05-06 10:05 | RAD REPORT ---
EXAMINATION: ONE VIEW CHEST XR CLINICAL INDICATION: spitting up blood TECHNIQUE: Frontal chest projection is submitted. Examination is limited by patient positioning and t echnique. COMPARISON: 11/22/2023 FINDINGS: Emphysematous changes with scarring in the left lung base suspected. No focal infiltrate. The heart i s upper limit of normal in size. No displaced fractures identified. IMPRESSION: COPD.
[2025-05-06 10:06] LABS: ALT/SGPT 36.0 U/L (13-56); AST/SGOT 15.0 U/L (15-37); Albumin 3.4 g/dL (3.4-5.0); Albumin/Globulin Ratio 0.9 (1.1-1.8); Alkaline Phosphatase 64.0 U/L (45-117); Anion Gap 11.3 mEq/L (5.0-15.0); BUN Blood Urea Nitrogen 34.0 mg/dL (7-18); Globulin 4.0 g/dL (2.3-3.5); Glucose Level 113.0 mg/dL (74-106); Potassium 3.3 mEq/L (3.5-5.1)
--- NOTE | 2025-05-06 10:51 | EDPHYS ---
Physician Documentation [facility] Name: Judi Harper Age: 89 yrs Sex: Female : 1935 Arrival Date: 05/06/2025 Time: 08:58 Bed 8 Private MD: ED Physician Joey Price HPI: 05/06 09:35 This 89 yrs old Female presents to ER via Ambulatory with complaints of RT Ear cr8 Bleeding, Spitting Out Blood. 09:35 Patient is an 89-year-old female with a history of A-fib hypertension spinal stenosis cr8 that presents to the emergency room complaining of bleeding from her right ear and spitting up blood. Reports she woke up at 5 AM with blood coming from her right ear. States later she was spitting up some blood. Denies any trauma. She has had no pain. Denies dyspnea chest pain fall. Neurologically intact. Complains of no headache or neurological changes. She is on Xarelto for atrial fibrillation. On examination is in no respiratory distress.. Historical: - Allergies: 09:26 PENICILLINS; iw - PMHx: 09:26 Hypertension; Atrial Fib; spinal stenosis; iw - Immunization history:: Adult Immunizations up to date. - Infectious Disease History:: Denies. - Social history:: Smoking status: Patient denies any tobacco usage or history of. ROS: 09:35 Constitutional: as per HPI cr8 Exam: 09:36 Constitutional: This is a well developed, well nourished patient who is awake, alert, cr8 and in no acute distress. Respiratory: Lungs have equal breath sounds bilaterally, clear to auscultation. No rales, rhonchi or wheezes noted. No increased work of breathing. Skin: Warm, dry with normal turgor. Normal color with no rashes, no lesions, and no evidence of cellulitis. Neuro: Awake and alert, GCS 15, oriented to person, place, time, and situation. Cranial nerves II-XII grossly intact. Motor strength 5/5 in all extremities. Sensory grossly intact. 09:36 ENT: No nasal discharge, no septal abnormalities noted. Oropharynx with no redness, swelling, or masses, exudates, or evidence of obstruction, uvula midline. Mucous membranes moist. No evidence of bleeding from the oropharynx. No evidence of bleeding from the nasal passages 09:36 ENT: TM's: loss of bony landmarks, rupture, on the right, with bloody discharge, Vital Signs: 10:00 BP 129 / 78; Pulse 68; Resp 18; Pulse Ox 94% on R/A; jp5 10:54 BP 132 / 82; Pulse 61; Resp 18; Temp 98; Pulse Ox 94% on R/A; Pain 0/10; jp5 10:54 Pain Scale: Adult jp5 MDM: 09:09 Medical Screening Exam initiated cr8 10:47 Data reviewed: vital signs, nurses notes, lab test result(s). Management of patient was cr8 discussed with the following: Patient Observer: Dr. Chandler. ED course: Patient came in for bleeding from the right ear and spitting up blood. Differential diagnose include but limited to following, otitis media, tympanic membrane rupture, hemotympanums, GI bleed, pulmonary embolus, nosebleed, coagulopathy Ordered CBC CMP PT/INR to evaluate for possible coagulopathic, thrombocytopenia. These were unremarkable when reviewing. On examination there is blood and a blood clot in the right ear. Suspect tympanic membrane rupture but unable to visualize if there is a blood clot in the area. Evaluated the back of her throat and there is no evidence of bleeding at that time. Analyzed both naris and there is no blood there. Patient has no respiratory distress and chest x-ray is unremarkable so do not suspect pulmonary source of her bleeding. Also she has no chest pain hypoxia tachycardia or any other concerns of possible pulmonary embolus. She is well-appearing and. In her ED evaluation she has had no more bleeding. I called her ears nose and throat doctor amadeo and discussed the situation with her. She wants her placed on Ciprodex drops and have her follow-up in the office. This was discussed with the patient. Strict return precautions were given.. 05/06 09:29 Order name: CBC with Diff; Complete Time: 09:53 cr8 05/06 09:29 Order name: CMP; Complete Time: 10:10 cr8 05/06 09:29 Order name: PT-INR; Complete Time: 09:57 cr8 05/06 09:29 Order name: CXR XRAY; Complete Time: 10:10 cr8 Administered Medications: No medications were administered Disposition: 10:15 I was immediately available on-site in the Emergency Department for consultation in the ms3 care of the patient. Disposition Summary: 05/06/25 10:50 Discharge Ordered Notes: Location: Home cr8 Condition: Stable cr8 Diagnosis - Bleeding from right ear cr8 Followup: cr8 - With: Emergency Department - When: As needed - Reason: Trouble breathing, Worsening of condition Followup: cr8 - With: Karma Chandler MD - When: - Reason: Recheck today's complaints, Continuance of care, Re-evaluation by your physician Discharge Instructions: - Discharge Summary Sheet cr8 - Ear Drainage cr8 Forms: - Medication Reconciliation Form cr8 - Patient Portal Instructions cr8 - Leadership Thank You Letter cr8 Prescriptions: - Ciprodex 0.3-0.1 % Otic drops, suspension - instill 4 drops OTIC route every 12 hours for 7 days , for ears ONLY; 1 cr8 Applicator; Refills: 0, Product Selection Permitted Signatures: Dispatcher [employer] Rebecca Espinoza RN RN iw Joey Price DO DO ms3 Vanessa Vallejo RN RN jp5 Thom White NP MOTORCYCLE TESTER cr8 Corrections: (The following items were deleted from the chart) 09:36 09:35 Patient is an 89-year-old female with a history of. cr8 cr8
--- NOTE | 2025-05-06 10:51 | ER ---
Nurse's Notes [facility] Name: Judi Harper Age: 89 yrs Sex: Female : 1935 Arrival Date: 05/06/2025 Time: 08:58 Bed 8 Private MD: Diagnosis: Bleeding from right ear Presentation: 05/06 09:25 Chief complaint: Patient states: woke up at 0500 and her right ear was bleeding , now iw she has been spitting up blood. Coronavirus screen: At this time, the client does not indicate any symptoms associated with coronavirus-19. Ebola Screen: No symptoms or risks identified at this time. Risk Assessment: Do you want to hurt yourself or someone else? Patient reports no desire to harm self or others. Onset of symptoms was May 06, 2025. 09:25 Method Of Arrival: Ambulatory iw 09:25 Acuity: PIA 3 iw 09:30 Initial Sepsis Screen: Does the patient meet any 2 criteria? No. Patient's initial 5 sepsis screen is negative. Does the patient have a suspected source of infection? No. Patient's initial sepsis screen is negative. Historical: - Allergies: 09:26 PENICILLINS; iw - PMHx: 09:26 Hypertension; Atrial Fib; spinal stenosis; iw - Immunization history:: Adult Immunizations up to date. - Infectious Disease History:: Denies. - Social history:: Smoking status: Patient denies any tobacco usage or history of. Screenin:30 [facility] ED Fall Risk Assessment (Adult) History of falling in the last 3 months, [facility] including since admission No falls in past 3 months (0 pts) Confusion or Disorientation No (0 pts) Intoxicated or Sedated No (0 pts) Impaired Gait No (0 pts) Mobility Assist Device Used Yes (1 pt) Altered Elimination No (0 pt) Score/Fall Risk Level 0 - 2 = Low Risk Oriented to surroundings, Maintained a safe environment, Educated pt \T\ family on fall prevention, incl call for assistance when getting out of bed, Assessed \T\ reinforced patient's understanding of fall precautions, Provided non-skid footwear, Hourly rounding (assess needs \T\ fall precautionary measures) done, Used ambulatory aids as needed (educated on \T\ assisted with). Abuse screen: Denies threats or abuse. Denies injuries from another. Nutritional screening: No deficits noted. Tuberculosis screening: No symptoms or risk factors identified. Assessment: 09:30 General: Appears in no apparent distress. comfortable, Behavior is calm, cooperative, jp5 appropriate for age. Pain: Denies pain. EENT: Reports nose bleed a couple days ago and bleeding from her left ear this morning. Currently at this time, no bleeding noted. . 10:30 Reassessment: Patient appears in no apparent distress at this time. Patient and/or jp5 family updated on plan of care and expected duration. Pain level reassessed. Patient is alert, oriented x 3, equal unlabored respirations, skin warm/dry/pink. Patient denies pain at this time. Vital Signs: 10:00 BP 129 / 78; Pulse 68; Resp 18; Pulse Ox 94% on R/A; jp5 10:54 BP 132 / 82; Pulse 61; Resp 18; Temp 98; Pulse Ox 94% on R/A; Pain 0/10; jp5 10:54 Pain Scale: Adult jp5 ED Course: 09:02 Patient arrived in ED. cj3 09:09 Thom White, LOVE is PHCP. cr8 09:09 Joey Price DO is Attending Physician. cr8 09:26 Triage completed. iw 09:27 Arm band placed on. iw 09:28 Vanessa Vallejo, RN is Primary Nurse. jp5 09:30 Patient has correct armband on for positive identification. Bed in low position. Call jp5 light in reach. Side rails up X 1. Provided Education on: call light use. 09:30 No provider procedures requiring assistance completed. Initial lab(s) drawn, by , jp5 sent to lab. Inserted saline lock: 20 gauge in right antecubital area, using aseptic technique. Blood collected. Flushed with 10 mL NS. 09:34 PT-INR Sent. jp5 09:34 CMP Sent. jp5 09:34 CBC with Diff Sent. jp5 09:57 CXR XRAY In Process Unspecified. EDMS 10:49 Karma Chandler MD is Referral Physician. cr8 10:54 IV discontinued, intact, bleeding controlled, No redness/swelling at site. Pressure jp5 dressing applied. Administered Medications: No medications were administered Medication: 09:30 VIS not applicable for this client. jp5 Outcome: 10:50 Discharge ordered by . hi 10:55 Discharged to home ambulatory, jp5 10:55 Condition: stable 10:55 Discharge instructions given to patient, Instructed on discharge instructions, follow up and referral plans. medication usage, Demonstrated understanding of instructions, follow-up care, medications, Prescriptions given X 1, 11:02 Patient left the ED. jp5 Signatures: Dispatcher [employer] EDMS Rebecca Alberto RN RN iw Vanessa Vallejo RN RN adi5 Jennifer Vuong cj3 Thom White, DIRECTOR INTERNAL AUDIT DIRECTOR INTERNAL AUDIT cr8
[2025-05-06 11:08] VITALS: O2SAT 94
[2025-05-06 11:09] VITALS: BP 132/82; TEMP 98
== END 2025-05-06 11:02 | disposition home or self-care (01) ==
LOC: ER 08:58
DX: H92.21 Otorrhagia, right ear (principal)
CPT/HCPCS: 36415; 71045; 80053; 85025; 85610; 99284